=== PATIENT | male | born 1980 | race African-American/Black ===

== ENCOUNTER 2017-06-26 22:26 | Emergency (ER) | payer MEDICAID, OTHER ==
[2017-06-26 22:34] VITALS: BP 123/86; TEMP 99.7
[2017-06-26] MEDS ORDERED: MAG HYDROX/AL HYDROX/SIMETH 30 ML UDCUP PO ONE (23:57)
[2017-06-26] MEDS ORDERED: FAMOTIDINE 20 MG TAB PO ONE (23:57)
[2017-06-26] MEDS ORDERED: LIDOCAINE 2% VISCOUS 15 ML UDCUP PO ONE (23:57)
--- NOTE | 2017-06-26 23:58 | EDPHY ---
H & P Stated Complaint: ESOPHAGUS PAIN, HICCUPS Time Seen by Provider: 06/26/17 23:40 HPI/ROS: Chief Complaint: Reflux, hiccups HPI: 36-year-old homeless male with a history of GERD presenting with symptoms of GERD today and associated hiccups on and off all day. No nausea or vomiting. Little bit of epigastric pain. No fevers or chills. Is similar to prior episodes. He is not taking any medication for this. No vomiting. No melena or blood in stool. No chest pain or shortness of breath. He does drink occasional alcohol, denies smoking or drug use. ROS: 10 point Review of Systems is negative except as noted in the HPI. PMH: GERD Social History: No smoking, occasional alcohol, no recreational drug use Family History: non-contributory Physical Exam: Gen: Awake, Alert, No Distress HEENT: Nose: no rhinorrhea Eyes: PERRLA, EOMI Mouth: Moist mucosa Neck: Supple, no JVD Chest: nontender, lungs clear to auscultation Heart: S1, S2 normal, no murmur Abd: Soft, mild epigastric tenderness, no guarding Back: no CVA tenderness, no midline tenderness Ext: no edema, non-tender Skin: no rash Neuro: CN II-XII intact, Sensation grossly intact, Strength 5/5 in bilateral upper and lower extremities - Personal History Current Tetanus/Diphtheria Vaccine: No - Medical/Surgical History Hx Asthma: No Hx Chronic Respiratory Disease: No Hx Diabetes: No Hx Cardiac Disease: No Hx Renal Disease: No Hx Cirrhosis: No Hx Alcoholism: No Hx HIV/AIDS: No Hx Splenectomy or Spleen Trauma: No Other PMH: "WEAK HEART FROM DRUG USE" - Social History Smoking Status: Never smoked Constitutional: Initial Vital Signs Temperature (C) 37.6 C 06/26/17 22:31 Heart Rate 115 H 06/26/17 22:31 Respiratory Rate 20 06/26/17 22:31 Blood Pressure 123/86 H 06/26/17 22:31 O2 Sat (%) 93 06/26/17 22:31 O2 Delivery Mode Room Air Allergies/Adverse Reactions: PSYCHOTROPIC MEDICATIONS Allergy (Uncoded 06/26/17 22:31) Home Medications: Medication Instructions Recorded NK [No Known Home Meds] 06/26/17 Medical Decision Making ED Course/Re-evaluation: Patient is improved after GI cocktail and Pepcid. Will discharge with follow- up with [facility]. He can take [id number] antacids as needed. - Data Points Medications Given: Discontinued Medications Acetaminophen (Tylenol) 1,000 mg PO EDNOW ONE Stop: 06/27/17 00:18 Last Admin: 06/27/17 00:26 Dose: 1,000 mg Al Hydroxide/Mg Hydroxide (Maalox Susp) 30 ml PO ONCE ONE Stop: 06/26/17 23:58 Last Admin: 06/27/17 00:09 Dose: 30 ml Famotidine (Pepcid) 20 mg PO EDNOW ONE Stop: 06/26/17 23:58 Last Admin: 06/27/17 00:09 Dose: 20 mg Lidocaine (Lidocaine 2% Viscous) 15 ml PO ONCE ONE Stop: 06/26/17 23:58 Last Admin: 06/27/17 00:09 Dose: 15 ml Departure - Departure Disposition: Home, Routine, Self-Care Clinical Impression: GERD (gastroesophageal reflux disease) Condition: Good Instructions: Gastroesophageal Reflux Disease (ED) Additional Instructions: You may take [id number] antacids such as Pepcid as needed for your reflux. Follow up at [facility] in 3-4 days for further evaluation. Referrals: [facility],. [Clinic] - As per Instructions
[2017-06-27] MEDS ORDERED: ACETAMINOPHEN 500 MG TAB PO ONE (00:17)
[2017-06-27 01:27] VITALS: PULSE 78; RESP 16; O2SAT 96
== END 2017-06-27 01:26 | disposition home or self-care (01) ==
DX: K21.9 Gastro-esophageal reflux disease without esophagitis (principal)

== ENCOUNTER 2017-06-27 19:46 | Emergency (ER) | payer MEDICAID ==
[2017-06-27 19:57] VITALS: BP 112/86; PULSE 92; RESP 16; TEMP 99.1; O2SAT 93
[2017-06-27] MEDS ORDERED: LIDOCAINE 2% VISCOUS 15 ML UDCUP PO ONE (20:16)
[2017-06-27] MEDS ORDERED: MAG HYDROX/AL HYDROX/SIMETH 30 ML UDCUP PO ONE (20:16)
[2017-06-27] MEDS ORDERED: HYOSCYAMINE SULFATE 0.125 MG TAB PO ONE (20:16)
[2017-06-27] MEDS ORDERED: FAMOTIDINE 20 MG TAB PO ONE (20:19)
--- NOTE | 2017-06-27 20:24 | EDPHY ---
H & P Time Seen by Provider: 06/27/17 20:07 HPI/ROS: CHIEF COMPLAINT: "I just need GI cocktail and place for the night" HISTORY OF PRESENT ILLNESS: 36-year-old homeless male history of esophageal reflux seen in the ER yesterday for complaints of esophageal reflux return to the ER requesting another dose of GI cocktail. Also requesting respite for the evening noting that he was [facility] to [facility] into the [facility] and there is no warming fdc due to current weather conditions. PHYSICAL EXAM (Prior to examination, patient consented to physical exam, hands were washed and my usual and customary physical exam procedures followed) 1) GENERAL: Well-developed, well-nourished, alert and oriented. Appears to be in no acute distress. 2) HEAD: Normocephalic 3) HEENT: sclera anicteric . Airway is patent. Patient will only allow me to examine is oropharynx from a far. 4) LUNGS: Breathing comfortably. He will not allow me to auscultate his lungs 5) neck: Patient will not allow me to palpate his neck or palpate his face Smoking Status: Never smoked Constitutional: Initial Vital Signs Temperature (C) 37.3 C 06/27/17 19:55 Heart Rate 92 06/27/17 19:55 Respiratory Rate 16 06/27/17 19:55 Blood Pressure 112/86 H 06/27/17 19:55 O2 Sat (%) 93 06/27/17 19:55 O2 Delivery Mode Room Air Allergies/Adverse Reactions: PSYCHOTROPIC MEDICATIONS Allergy (Uncoded 06/26/17 22:31) Home Medications: Medication Instructions Recorded NK [No Known Home Meds] 06/26/17 MDM/Departure - MDM ED Course/Re-evaluation: Patient will not allow me to examine him adequately. He requests a GI cocktail and a dose of Pepcid which has been given to him. He requests overnight stay in the ER noting that he is unable to get into a fdc. I have declined this request. He has been informed that I am unable to adequately evaluate him if he is unwilling to let me examine him. [facility]. Care of patient under supervision of secondary supervising physician Dr Jenkins . - Depart Disposition: Home, Routine, Self-Care Clinical Impression: GERD (gastroesophageal reflux disease) Qualifiers: Esophagitis presence: with esophagitis Qualified Code(s): K21.0 - Gastro- esophageal reflux disease with esophagitis Condition: Good Instructions: Gastroesophageal Reflux Disease (ED) Additional Instructions: If you develop new or worsening symptoms return to the ER. Referrals: [facility],. [Clinic] - 1-2 days without fail
== END 2017-06-27 20:34 | disposition home or self-care (01) ==
DX: K21.0 Gastro-esophageal reflux disease with esophagitis (principal)

== ENCOUNTER 2017-12-31 22:33 | Emergency (ER) | payer MEDICAID ==
--- NOTE | 2017-12-31 23:05 | EDPHY ---
H & P Stated Complaint: cough fatigue Time Seen by Provider: 12/31/17 23:05 HPI/ROS: HPI CHIEF COMPLAINT: Cough and fatigue HISTORY OF PRESENT ILLNESS: 37-year-old male, denies any significant past medical history presents emergency room with cough, and fatigue. Patient is somewhat of a poor historian. He presents emergency room stating for the past 24 hr he has had worsening cough. Semi productive with yellow sputum. And fatigue. Denies any fever. Denies chest pain or shortness of breath, does complain that he is tired. Otherwise no other complaints. Past Medical History: Denies medical history Past Surgical History: Denies surgical history Social History: Denies drugs alcohol or tobacco. Family History: Noncontributory ROS REVIEW OF SYSTEMS: Somewhat of a poor historian. Hesitant to answer most of my questions. Exam Constitutional nontoxic appearing, no acute distress, triage nursing summary reviewed, vital signs reviewed, awake/alert. Vital signs are stable afebrile. Eyes normal conjunctivae and sclera, EOMI, PERRLA. HENT normal inspection, atraumatic, moist mucus membranes, no epistaxis, neck supple/ no meningismus, no raccoon eyes. Respiratory cough on exam, clear to auscultation bilaterally, normal breath sounds, no respiratory distress, no wheezing. Cardiovascular rate normal, regular rhythm, no murmur, no edema, distal pulses normal. Gastrointestinal soft, non-tender, no rebound, no guarding, normal bowel sounds, no distension, no pulsatile mass. Genitourinary no CVA tenderness. Musculoskeletal no midline vertebral tenderness, full range of motion, no calf swelling, no tenderness of extremities, no meningismus, good pulses, neurovascularly intact. Skin pink, warm, & dry, no rash, skin atraumatic. Neurologic awake, alert and oriented x 3, AAOx3, moves all 4 extremities equally, motor intact, sensory intact, CN II-XII intact, normal cerebellar, normal vision, normal speech. Psychiatric normal mood/affect. Heme/Lymph/Immune no lymphadenopathy. Differential Diagnosis: Includes but is not limited to in a particular order viral pneumonia, bacterial pneumonia, bronchitis, reactive airway disease, dehydration, electrolyte disturbance, viral syndrome Medical Decision Making: Plan for this patient two view chest x-ray to rule pneumonia, IV establishment IV fluid bolus, basic blood work. Re-evaluate Re-evaluation: Here in emergency room I tried to express that the patient should receive blood work, IV fluid bolus given how he is feeling however he has declined IV establishment, decline blood draw, declined IV fluids. He only wants a chest x- ray. Patient understands by refusing IV establishment, blood draw, that this can limit his workup. Chest x-ray two view reviewed. No evidence of focal pneumonia. 1204: I did go re-evaluate he is resting comfortably no acute distress. Albuterol inhaler prescribed for cough. Chest x-ray shows no pneumonia. Vital signs are stable. No hypoxia. No fever. Return precautions discussed with the patient. Patient understands return emergency room if he has worsening symptoms questions or concerns. Source: Patient - Personal History Current Tetanus/Diphtheria Vaccine: Yes Current Tetanus Diphtheria and Acellular Pertussis (TDAP): Yes - Medical/Surgical History Hx Asthma: No Hx Chronic Respiratory Disease: No Hx Diabetes: No Hx Cardiac Disease: No Hx Renal Disease: No Hx Cirrhosis: No Hx Alcoholism: No Hx HIV/AIDS: No Hx Splenectomy or Spleen Trauma: No Other PMH: "WEAK HEART FROM DRUG USE", L HAND SX. cocaine - Social History Smoking Status: Current some day smoker Constitutional: Initial Vital Signs Temperature (C) 37.1 C 12/31/17 22:36 Heart Rate 79 12/31/17 22:36 Respiratory Rate 18 12/31/17 22:36 Blood Pressure 125/75 H 12/31/17 22:36 O2 Sat (%) 92 12/31/17 22:36 O2 Delivery Mode Room Air Allergies/Adverse Reactions: PSYCHOTROPIC MEDICATIONS Allergy (Uncoded 06/26/17 22:31) Home Medications: Medication Instructions Recorded Albuterol [Proventil Inhaler HFA 1 - 2 puffs IH Q4H #1 mdi 12/31/17 (*)] Medical Decision Making - Diagnostics Imaging Results: Imaging Impressions Chest X-Ray 12/31/17 23:15 Impression: No focal pneumonia. - Data Points Medications Given: Discontinued Medications Sodium Chloride (Ns) 1,000 mls @ 0 mls/hr IV ONCE ONE; Wide Open PRN Reason: Protocol Stop: 12/31/17 23:16 Last Admin: 12/31/17 23:38 Dose: Not Given Departure - Departure Disposition: Home, Routine, Self-Care Clinical Impression: Cough Instructions: Cold Symptoms (ED), Acute Cough (ED) Additional Instructions: 1. Stay well-hydrated drink lots of fluids. 2. Return emergency room if you have worsening symptoms questions or concerns. 3. Albuterol inhaler for cough. Referrals: NONE *PRIMARY CARE P,. [Primary Care Provider] - As per Instructions [facility],. [Clinic] - As per Instructions Prescriptions: Albuterol [Proventil Inhaler HFA (*)] 1 - 2 puffs IH Q4H #1 mdi
[2017-12-31] MEDS ORDERED: NS 1,000 ML IV ONE (23:15)
[2018-01-01 00:13] VITALS: BP 122/74
== END 2018-01-01 00:13 | disposition home or self-care (01) ==
DX: R05 Cough (principal); R53.83 Other fatigue

== ENCOUNTER 2018-01-02 14:45 | Emergency (ER) | payer MEDICAID ==
[2018-01-02] MEDS ORDERED: ACETAMINOPHEN 500 MG TAB PO ONE (15:02)
[2018-01-02] MEDS ORDERED: IBUPROFEN 600 MG TAB PO ONE (15:03)
[2018-01-02] MEDS ORDERED: ACETAMINOPHEN 500 MG TAB ONE (15:04)
--- NOTE | 2018-01-02 16:22 | EDPHY ---
H & P Stated Complaint: headache Time Seen by Provider: 01/02/18 16:21 - Personal History Current Tetanus Diphtheria and Acellular Pertussis (TDAP): Unsure - Medical/Surgical History Hx Asthma: No Hx Chronic Respiratory Disease: No Hx Diabetes: No Hx Cardiac Disease: No Hx Renal Disease: No Hx Cirrhosis: No Hx Alcoholism: No Hx HIV/AIDS: No Hx Splenectomy or Spleen Trauma: No Other PMH: "WEAK HEART FROM DRUG USE", L HAND SX. cocaine - Social History Smoking Status: Current some day smoker Constitutional: Initial Vital Signs Temperature (C) 39.4 C H 01/02/18 15:01 Heart Rate 103 H 01/02/18 15:01 Respiratory Rate 18 01/02/18 15:01 Blood Pressure 119/86 H 01/02/18 15:01 O2 Sat (%) 97 01/02/18 15:01 O2 Delivery Mode Room Air Allergies/Adverse Reactions: haloperidol [From Haldol] Allergy (Verified 01/02/18 15:01) ketamine Allergy (Verified 01/02/18 15:01) olanzapine [From Zyprexa] Allergy (Verified 01/02/18 15:01) PSYCHOTROPIC MEDICATIONS Allergy (Uncoded 06/26/17 22:31) Home Medications: Medication Instructions Recorded Albuterol [Proventil Inhaler HFA 1 - 2 puffs IH Q4H #1 mdi 12/31/17 (*)] Medical Decision Making ED Course/Re-evaluation: CHIEF COMPLAINT: Fever, headache HISTORY OF PRESENT ILLNESS: This patient is a homeless 37 year old male complaining of fever and headache. 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 He has felt ill since then and had a cough which has now resolved. The patient has taken Tylenol and ibuprofen for relief. The patient states he gets ill when he goes to the [facility] and is wondering if there is anywhere else he can stay tonight. He denies chest pain, shortness of breath, vomiting, diarrhea, urinary complaints or other associated symptoms. REVIEW OF SYSTEMS: A comprehensive 10 system review of systems is otherwise negative aside from elements mentioned in the history of present illness and medical decision making. PHYSICAL EXAM: HR, BP, O2 Sat, RR. Temp noted General Appearance: Alert, well hydrated, appropriate, and non-toxic appearing. Head: Atraumatic without scalp tenderness or obvious injury Eyes: Pupils equal, round, reactive to light and accommodation, EOMI, no trauma , no injection. Ears: Clear bilaterally, no perforation, normal landmarks Nose: Atraumatic, no rhinorrhea, clear. Throat: There is no erythema or exudates, no lesions, normal tonsils, mucus membranes moist. Neck: Supple, nontender, no lymphadenopathy. Respiratory: Diffuse coarse rhonchi. Cardiovascular: Regular rate and rhythm, no murmurs, rubs, or gallops. Bilateral carotid, radial, dorsalis pedis, and posterior tibial pulses intact. Good capillary refill all extremities. Gastrointestinal: Abdomen is soft, nontender, non-distended, no masses, no rebound, no guarding, no peritoneal signs. Musculoskeletal: Normal active ROM of all extremities, atraumatic. Neurological: Alert, appropriate, and interactive. Nonfocal neuro exam. Skin: No rashes, good turgor, no nodules on palpation. Past medical history: History of drug abuse Past surgical history: Hand surgery Family history: Noncontributory. Social history: Transient. Currently staying in [facility]. Single. DIFFERENTIAL DIAGNOSIS: The differential diagnosis for the patient's fever included but was not limited to pneumonia, urinary tract infection, viral syndrome, meningitis, and sepsis. MEDICAL DECISION MAKING: This 37 y/o homeless male presents with fever and headache. Additionally, he is concerned regarding a place to stay tonight. He has already taken Tylenol and ibuprofen tonight. Case management to consult. Case management has spoken with this patient and with the [facility]. Patient is unable to stay at the [facility] tonight as he has not gotten a TB test yet. He understands this requirement. Case management provided resources for a walk-in TB test at the [facility] tomorrow. The patient will follow up with them. Symptoms more consistent with a viral syndrome than bacterial infection. I will not prescribe antibiotics at this time. He will follow up with the [facility] as above. Plan to discharge home in good condition. Follow up and return precautions discussed. He is comfortable with this plan. - Data Points Medications Given: Discontinued Medications Acetaminophen (Tylenol) 1,000 mg PO EDNOW ONE Stop: 01/02/18 15:03 Last Admin: 01/02/18 15:06 Dose: 1,000 mg Ibuprofen (Motrin) 600 mg PO EDNOW ONE Stop: 01/02/18 15:04 Last Admin: 01/02/18 15:06 Dose: 600 mg Departure - Departure Disposition: Home, Routine, Self-Care Clinical Impression: Viral syndrome Condition: Good Instructions: [facility], Viral Syndrome (ED) Additional Instructions: 1. Follow up with your primary care provider. We have provided a referral to a local clinic. 2. Take Tylenol and ibuprofen for fever reduction as directed below. You can alternate these every three hours. Adult Pain & Fever Control: We recommend Acetaminophen (Tylenol) and Ibuprofen (Motrin,Advil) for pain and fever control. When fever is high or pain severe, both drugs can be used at the same time, but at different intervals. Please note the time differences. Your dose is: Acetaminophen 650mg every 4 to 6 hours Ibuprofen 600mg every 6-8 hours with food Note: do not take Acetaminophen with Hydrocodone (Vicodin, Lortab) or Oxycodone (Percocet). These medications also contain Acetaminophen. No more than 3000mg of Acetaminophen should be taken in 24 hours (for an adult). Walk-in hours at [facility]: between 2-330pm. You MUST go to get a TB test and temporary card in order to stay at the [facility]. Referrals: [facility],. [Clinic] - As per Instructions Report Scribed for: Donis Reeves Report Scribed by: Jenny Johnson Date of Report: 01/02/18 Time of Report: 18:43
[2018-01-02 17:13] VITALS: BP 130/79
--- NOTE | 2018-01-02 17:40 | ASMTCMCOM ---
CM Note CM Note Notes: Please see ER report for details regarding recent ER visits (12/31/17 and 01/02/18). Patient informs me that he has been to "coordinated entry" and was directed to the [facility]. He prefers not to stay at the assisted because he finds it "smelly and difficult to breathe there". I asked patient about other resources he has looked into, including establishing a PCP at [facility] and/or [facility]. Patient states that he travels between [place] and [place] and has been to [facility] but "does not like it there". "I do not have any mental health issues. I just have behavioral issues from being homeless". I contacted the [facility] and spoke with Jing. She states that patient is able to stay at the assisted once he has a TB test. He has reached his "limit" in the number of days that have past since he has stayed at the assisted and has not followed up with a TB test. Jing confirms the walk in hours at [facility] tomorrow 2:00-3:40 PM, and states that patient can get his TB test during these hours and present at the assisted tomorrow evening with his temporary card. He is NOT able to stay at the assisted tonight I have discussed this with the patient and provided him a list of community resources, including contact information for [facility] 06/11 crisis center. The walk in hours for tomorrow and the address for [facility] was provided to him as well. Patient verbalizes understanding that he must follow up with this in order to resume staying at the assisted. Date Signed: 01/02/2018 05:39 PM Electronically Signed By:Nita Amos RN
== END 2018-01-02 17:13 | disposition home or self-care (01) ==
LOC: EDUNIT#
DX: B34.9 Viral infection, unspecified (principal); F17.200 Nicotine dependence, unspecified, uncomplicated

== ENCOUNTER 2018-01-02 23:11 | Emergency (ER) | payer MEDICAID ==
[2018-01-02 23:17] VITALS: BP 100/61
[2018-01-02] MEDS ORDERED: LACTATED RINGERS IV ONE (23:18)
[2018-01-02] MEDS ORDERED: ACETAMINOPHEN 500 MG TAB PO ONE (23:19)
--- NOTE | 2018-01-02 23:27 | EDPHY ---
H & P Stated Complaint: fever and VALDOVINOS doesn't have tylenol Time Seen by Provider: 01/02/18 23:20 HPI/ROS: HPI: This is a 37-year-old male who presents with Chief Complaint: fever and VALDOVINOS doesn't have tylenol Location:body Quality: Fever and headache Duration: Several days Signs and Symptoms: no fever, + nausea, no vomiting, no diarrhea, no urinary symptoms, no chest pain, no shortness of breath, no wheezing,+ cough, no sore throat, no neck stiffness, no joint pain, no swollen glands, no ear pain, no rash Timing: Daily Severity: Moderate Context: Patient is homeless, presents for the 3rd ER visit with complaints of fever and requesting Tylenol. He reports that he has had a fever for several days. He also has a headache "all over" and nonproductive cough. He is refusing all treatments except Tylenol. Patient is homeless. He denies any recent drug use. She further reports that he was in the hospital recently and does not want to be admitted again. He reports that he did not like receiving IV fluids when he was hospitalized and he refuses to have any more fluids" pumped into my body." Modifying Factors: None Comment: ROS: A comprehensive 10 system review of systems is otherwise negative aside from elements mentioned in the history of present illness. MEDICAL/SURGICAL/SOCIAL HISTORY: Medical/surgical history: "WEAK HEART FROM DRUG USE", L HAND SX, cocaine Social history: Tobacco user. Homeless. Current every day smoker. Family history noncontributory. CONSTITUTIONAL: Ill-appearing, middle-aged black male, awake and alert, no obvious distress HEENT: Atraumatic and normocephalic, PERRL, EOMI. Nares patent; no rhinorrhea; no nasal mucosal edema. Tympanic membranes clear. Oropharynx clear, no exudate and moist pink mucosa. Airway patent. No lymphadenopathy. No meningismus. Cardiovascular: Normal S1/S2, tachycardia, regular rhythm, without murmur rub or gallop. PULMONARY/CHEST: Symmetrical and nontender. Clear to auscultation bilaterally. Good air movement. No accessory muscle usage. ABDOMEN: Soft, nondistended, nontender, no rebound, no guarding, no peritoneal signs, no masses or organomegaly. No CVAT. EXTREMITIES: 2/2 pulses, strength 5/5, no deformities, no clubbing, no cyanosis or edema. NEUROLOGICAL: no focal neuro deficits. GCS 15. SKIN: Warm and dry, diaphoretic, no erythema. no rash. Good capillary refill. Source: Patient Exam Limitations: No limitations - Personal History Current Tetanus/Diphtheria Vaccine: No Current Tetanus Diphtheria and Acellular Pertussis (TDAP): No - Medical/Surgical History Hx Asthma: No Hx Chronic Respiratory Disease: No Hx Diabetes: No Hx Cardiac Disease: No Hx Renal Disease: No Hx Cirrhosis: No Hx Alcoholism: No Hx HIV/AIDS: No Hx Splenectomy or Spleen Trauma: No Other PMH: "WEAK HEART FROM DRUG USE", L HAND SX. cocaine - Social History Smoking Status: Current some day smoker Constitutional: Initial Vital Signs Temperature (C) 39.4 C H 01/02/18 23:13 Heart Rate 114 H 01/02/18 23:13 Respiratory Rate 16 01/02/18 23:13 Blood Pressure 100/61 01/02/18 23:13 O2 Sat (%) 97 01/02/18 23:13 O2 Delivery Mode Room Air Allergies/Adverse Reactions: haloperidol [From Haldol] Allergy (Verified 01/02/18 23:14) ketamine Allergy (Verified 01/02/18 15:01) olanzapine [From Zyprexa] Allergy (Verified 01/02/18 23:14) PSYCHOTROPIC MEDICATIONS Allergy (Uncoded 01/02/18 23:14) Home Medications: Medication Instructions Recorded Albuterol [Proventil Inhaler HFA 1 - 2 puffs IH Q4H #1 mdi 12/31/17 (*)] Medical Decision Making ED Course/Re-evaluation: Vital signs reviewed upon arrival. Sirs criteria met. Blood culture, lactic acid, laboratory studies, chest x-ray, IV fluids 30 mL/kg , oral medications ordered Patient will only accept Tylenol; 1000 mg given. At bedside for 15 minutes, trying to convince patient to allow laboratory studies, chest x-ray and IV placement including IV fluids. Discussed risk, benefits, adverse effects. Patient is alert and oriented x4 and adamantly declines any further intervention other than Tylenol. Patient understands that he could develop sepsis, septic shock and even an untimely . This patient was seen under the supervision of my secondary supervising physician. I evaluated care for this patient independently. Discussed this patient with Dr. Stout who did see the patient. Differential Diagnosis: Adult fever including but not limited to viral syndromes including influenza, urinary tract infection, pneumonia and sepsis. Departure - Departure Disposition: Against Medical Advice Clinical Impression: SIRS (systemic inflammatory response syndrome) Condition: Fair Instructions: Acetaminophen (By mouth), Fever in Adults (ED) Additional Instructions: Take Tylenol 650 mg every 4 hours and/or Ibuprofen 600 mg every 8 hours with food as needed for pain/fever. Consume a minimum of 8-10 glasses of water or electrolyte fluid replacement drinks that include Gatorade, Powerade, Pedialyte. Return at once for any worsening symptoms or concerns. By leaving against medical advise you have verbalized complete understanding and acceptance of the risks associated with doing so, including, but not limited to, , chronic & permanent disability and impairment, and other circumstances and consequences too numerous to mention herein Referrals: [facility],. [Clinic] - As per Instructions
== END 2018-01-02 23:33 | disposition left against medical advice (07) ==
LOC: EDUNIT#
DX: R65.10 Systemic inflammatory response syndrome (SIRS) of non-infectious origin without acute organ dysfunction (principal); F17.200 Nicotine dependence, unspecified, uncomplicated; Z59.0 Homelessness

== ENCOUNTER 2018-01-14 15:29 | Emergency (ER) | payer MEDICAID ==
[~2018-01-14 15:29] MED LIST: METOCLOPRAMIDE 10 MG TAB PO SCH; PANTOPRAZOLE SODIUM 40 MG TAB PO SCH
[2018-01-14] MEDS ORDERED: ACETAMINOPHEN 325 MG TAB PO ONE (15:45)
[2018-01-14] MEDS ORDERED: PANTOPRAZOLE SODIUM 40 MG TAB PO ONE (15:45)
--- NOTE | 2018-01-14 15:51 | EDPHY ---
H & P Time Seen by Provider: 01/14/18 15:49 HPI/ROS: CHIEF COMPLAINT: Hiccups and headache HISTORY OF PRESENT ILLNESS: 37-year-old male presents with hiccups and headache. Onset of hiccups 2 days ago. The hiccups have been persistent and unrelieved with 1 dose of Prilosec. He has been seen in 2 emergency departments in the past 24 hr and was discharged to the [facility]. He was at the [facility] for approximately 10 min, when he complained of hiccups and a headache. He was sent to this emergency department for further evaluation. He has a mild headache and requests Tylenol. He has a history of recurrent hiccups, most recently 2 weeks ago. The hiccups return 2 days ago and have been fairly persistent. No recent illness. REVIEW OF SYSTEMS: complete 10 point ROS reviewed and is negative except for the noted elements in the HPI - Medical/Surgical History Hx Asthma: No Hx Chronic Respiratory Disease: No Hx Diabetes: No Hx Cardiac Disease: No Hx Renal Disease: No Hx Cirrhosis: No Hx Alcoholism: No Hx HIV/AIDS: No Hx Splenectomy or Spleen Trauma: No Other PMH: "WEAK HEART FROM DRUG USE", L HAND SX. cocaine - Social History Smoking Status: Current some day smoker Additional Social History: Homeless - Physical Exam Exam: General Appearance: Alert, confrontational, refuses to answer many questions Eyes: Pupils equal and round, no conjunctival pallor or injection ENT, Mouth: Mucous membranes moist Neck: Normal inspection Respiratory: Lungs are clear to auscultation Cardiovascular: Regular rate and rhythm Gastrointestinal: Abdomen is soft and nontender Neurological: A&O, nonfocal exam Skin: Warm and dry, no rash Extremities: Normal inspection Psychiatric: Anxious Constitutional: Initial Vital Signs Temperature (C) 37 C 01/14/18 15:49 Heart Rate 88 01/14/18 15:49 Respiratory Rate 18 01/14/18 15:49 Blood Pressure 125/85 H 01/14/18 15:49 O2 Sat (%) 98 01/14/18 15:49 O2 Delivery Mode Room Air Allergies/Adverse Reactions: haloperidol [From Haldol] Allergy (Verified 01/02/18 23:14) ketamine Allergy (Verified 01/02/18 15:01) olanzapine [From Zyprexa] Allergy (Verified 01/02/18 23:14) PSYCHOTROPIC MEDICATIONS Allergy (Uncoded 01/02/18 23:14) Home Medications: Medication Instructions Recorded Albuterol [Proventil Inhaler HFA 1 - 2 puffs IH Q4H #1 mdi 12/31/17 (*)] Metoclopramide [Reglan 10 mg tab 10 mg PO Q6 PRN #15 tab 01/14/18 (*)] Pantoprazole Sodium [Protonix] 40 mg PO DAILY #30 tablet. 01/14/18 Medical Decision Making ED Course/Re-evaluation: This pt presents with VALDOVINOS, hiccups and significant anxiety. Old medical record reviewed, h/o multiple prior ED visits. Multiple allergies to psych meds, refuses Ativan, though it seems he will benefit from Ativan. Protonix and Reglan orally given for hiccups. Tylenol given for VALDOVINOS. I doubt intracranial pathology causing sx. Imaging not indicated. f/u encouraged. - Data Points Medications Given: Discontinued Medications Acetaminophen (Tylenol) 650 mg PO EDNOW ONE Stop: 01/14/18 15:46 Last Admin: 01/14/18 15:55 Dose: 650 mg Metoclopramide HCl (Reglan) 10 mg PO EDNOW ONE Stop: 01/14/18 16:00 Last Admin: 01/14/18 16:06 Dose: 10 mg Pantoprazole Sodium (Protonix) 40 mg PO EDNOW ONE Stop: 01/14/18 15:46 Last Admin: 01/14/18 15:55 Dose: 40 mg Departure - Departure Disposition: Home, Routine, Self-Care Clinical Impression: Hiccups Condition: Good Instructions: Hiccups (ED) Additional Instructions: The [facility] has walk-in appointments for the homeless at the following days/locations. No appointment is needed. Sunday 8-10 am @ [facility] 11 AM-1 PM @ [facility] Sunday 8-10:30 AM @ [facility] Sunday 8-10 AM @ [facility] 2-4 PM @ [facility] Sunday 8-10 AM @ [facility] Referrals: [facility],. [Clinic] - As per Instructions Prescriptions: Metoclopramide [Reglan 10 mg tab (*)] 10 mg PO Q6 PRN #15 tab PRN Reason: Hiccups Pantoprazole Sodium [Protonix] 40 mg PO DAILY #30 tablet.
[2018-01-14] MEDS ORDERED: METOCLOPRAMIDE 10 MG TAB PO ONE (15:59)
[2018-01-14 16:47] VITALS: BP 120/80
--- NOTE | 2018-01-14 17:54 | ASMTCMCOM ---
CM Note CM Note Notes: Pt presented to the ED via EMS from the [facility] to [facility] for c/o of hiccups and a headache. Pt is homeless and had been initially set up a respite bed at [facility] through [facility]. Pt is not allowed to return to [facility] due to behavioral issues when he arrived there. Pt completed Coordinated Entry in June 2017 and was referred to the [facility] for [facility]. Pt has not been allowed to stay at the nursing home due to never following up w/[facility] to get his TB card (see CM Report 01/02/18). This CM spoke w/staff including Ramiro, at [facility], and it was confirmed that due to the new season, pt will be allowed one night ximena stay tonight but will need to follow-up w/PC tomorrow to get another TB test and eventually a TB card. Ramiro states it is not clear yet whether pt will only be allowed one night ximena stay tonight or if he will be allowed another 14 days ximena period for the TB card. Pt provided a Medicaid cab to [facility]. Pt provided Rxns through [facility] (total cost <$10) because his Medicaid rxn benefits are under a "Managed Care" plan and he can only get his meds filled through Medicaid at [facility]. Pt states he also sometimes stays in [place] shelters. Pt [facility] and contact info for Valencia Lee RN for [facility]. Pt provided [facility] walk-in hours and location, etc. CM available for further assistance if needed. Date Signed: 01/14/2018 05:53 PM Electronically Signed By:Yamileth Hodges RN
--- NOTE | 2018-01-15 11:04 | ASMTCMCOM ---
CM Note CM Note Notes: Followed up w/[facility] and spoke w/Dayami. Pt is not registered in their system. Requested that he be registered and a chart created; also requested that Linda, Homeless Outreach RN, can keep an eye out for the pt at the [facility] and assist w/getting PPD placement (& eventually TB card) and other outpatient follow-up as needed. Pt is aware of drop-in hours and that PC offers PPD placements at [facility] on Mon., Wed., and Fri but pt appears to have either cognitive and/or psychiatric issues that might hinder his ability to remember instructions, recommendations, etc. CM available for further assistance if needed. Date Signed: 01/15/2018 11:03 AM Electronically Signed By:Yamileth Hodges RN
== END 2018-01-14 16:47 | disposition home or self-care (01) ==
LOC: EDUNIT#
DX: R06.6 Hiccough (principal); R51 Headache; F17.210 Nicotine dependence, cigarettes, uncomplicated

== ENCOUNTER 2018-01-17 10:02 | Inpatient (IN) | payer MEDICAID, OTHER ==
[2018-01-17 12:17] LABS: PLATELET COUNT 335 10^3/uL (150-400)
--- NOTE | 2018-01-17 12:37 | EDPHY ---
General - History Smoking Status: Current some day smoker Time Seen by Provider: 01/17/18 12:13 Narrative: CHIEF COMPLAINT: M1 HISTORY OF PRESENT ILLNESS: Patient presents by EMS with reports of hold due to risk of self-harm. Patient was reportedly found sitting in the middle of traffic here in [place]. Police department document that they assisted him to the side of the road but he continued to be located in the middle of the road. They were concerned for his well being, thus they placed him on a hold he was transported to our facility. He is pacing in the room. He states that "I'm on too many medications and I made some bad decisions." He denies any chest pain or shortness of breath. No abdominal pain. He does have intermittent headache. He denies any ingestion of substances or alcohol today. PSYCHIATRIC DIAGNOSES: Denies any diagnoses PRIOR PSYCHIATRIC EVALUATIONS: Denies evaluations M1/DETAINER: [employer] [employer] just prior to arrival REVIEW OF SYSTEMS: Ten systems reviewed and are negative unless otherwise noted in the HPI EXAMINATION General Appearance: Alert, no distress. Pacing in the room. Conversing in full sentences Head: normocephalic, atraumatic Eyes: Pupils equal and round, no conjunctival pallor or injection. Will not performed EOM testing ENT, Mouth: Mucous membranes moist. Airway is patent Neck: Normal inspection. Midline trachea. Will not allow me to palpate Respiratory: Will not allow me to auscultate Cardiovascular: Will not allow me to auscultate Gastrointestinal: Abdomen is nondistended. He will not allow me to auscultated palpate Neurological: GCS 15. A&O, nonfocal, normal gait. No altered mentation. Skin: Warm and dry, no rash. Multiple tattoos. Extremities: Ambulatory. Will not allow examination Psychiatric: Agitated mood and flat affect. Denies homicidal ideation. Denies suicidal ideation. DIFFERENTIAL DIAGNOSES: Including but not limited to psychosis, bipolar disorder, schizoaffective, schizophrenia, aggression disorder, antisocial personality MDM: 12:15 p.m. M1 hold due to concern for self-harm as he was found sitting in the middle of road several times by police. They placed him on a hold and he thus far has been uncooperative. He has been pacing in his room. He has been agitated but not physically combative. They were finally able to obtain laboratory studies from him which are pending. 2:00 p.m. Patient has been medically cleared and evaluated with pending recommendation. 2:30 p.m. Patient has been accepted to [address] [place] [address], accepting physician is Dr. Sinha. He is in stable condition. EMTALA has been completed by Dr. Roxi Buckner SUPERVISION: Patient was independently examined, but I discussed the case with my secondary supervising physician Dr. Buckner ([facility]) Discussion: The patient was evaluated and managed by the Physician Voice Data Communications Engineer. I discussed the patient's presentation and course with the midlevel provider with them and agree with the evaluation. My co-signature indicates that I have reviewed this chart and I agree with the findings and plan of care as documented. I am the secondary supervising physician. (Roxi Buckner) - Objective Vital Signs: Initial Vital Signs Temperature (C) 36.5 C 01/17/18 10:12 Heart Rate 74 01/17/18 10:12 Respiratory Rate 18 01/17/18 10:12 Blood Pressure 118/70 01/17/18 10:12 O2 Sat (%) 94 01/17/18 10:12 O2 Delivery Mode Room Air Allergies/Adverse Reactions: haloperidol [From Haldol] Allergy (Verified 01/02/18 23:14) ketamine Allergy (Verified 01/02/18 15:01) olanzapine [From Zyprexa] Allergy (Verified 01/17/18 18:30) PSYCHOTROPIC MEDICATIONS Allergy (Uncoded 01/02/18 23:14) Home Medications: Medication Instructions Recorded Pantoprazole Sodium [Protonix] 40 mg PO DAILY #30 tablet. 01/14/18 Laboratory Results: Laboratory Results 01/17/18 11:15 01/17/18 11:15 01/17/18 00:04 Total Bilirubin 0.6 mg/dL mg/dL (0.1-1.4) Conjugated Bilirubin 0.2 mg/dL mg/dL (0.0-0.5) Unconjugated Bilirubin 0.4 mg/dL mg/dL (0.0-1.1) AST 17 IU/L IU/L (17-59) ALT 28 IU/L IU/L (21-72) Alkaline Phosphatase 74 IU/L IU/L (38-126) Total Protein 7.7 g/dL g/dL (6.3-8.2) Albumin 4.0 g/dL g/dL (3.5-5.0) Medications Given: Pantoprazole Sodium (Protonix) 40 mg PO DAILY LUCAS Stop: 07/17/18 08:59 Last Admin: 01/18/18 08:37 Dose: Not Given Discontinued Medications Lorazepam (Ativan) 2 mg PO EDNOW ONE Stop: 01/17/18 15:47 Last Admin: 01/17/18 16:04 Dose: Not Given Departure - Departure Disposition: [facility] IP Clinical Impression: Schizophrenia Condition: Good
--- NOTE | 2018-01-17 14:16 | ASMTTCLDSP ---
TLC Discharge Disposition Disposition: Answers: Admit Disposition Notes: Notes: Admit 3N. Discharge Concerns/Recommendations: Notes: In consultation with [facility] ED physician, DAJUAN Feldman and on-call psychiatrist, Chris Cohen MD, both concurred that pt appears to meet 27-65 criteria requiring psychiatric hospitalization as pt appears to be at risk of harm to self/gravely disabled due to a mental illness condition. Pt was given (but unable to sign) the 3N prohibited belongings list while in the ED. Was patient given the Answers: Yes Inpatient Behavioral Health Prohibited Belongings List while in the ED? For inpatient Chris Cohen MD admission, the following psychiatrist agreed to accept patient for admission to Behavioral Health ([facility]): Type of Hold: Answers: M1/72-hour Hold Hold initiated by: Answers: Police Date Signed: 01/17/2018 02:16 PM Electronically Signed By:Checo Paula
--- NOTE | 2018-01-17 14:16 | ASMTTLCEVL ---
TLC Evaluation - Basic Information Evaluation Start Date and 01/17/2018 01:00 PM Time Hospital Status Answers: M1 Hold 72-hr M1 Hold Start Date 01/17/2018 09:45 AM and Time Patient statement Notes: Im not doing too good. Its hard for me to talk right now. Narrative Notes: Pt is a 37 yo, homeless, unemployed, male with limited known psychiatric history, likely schizophrenia and ZOË, brought to [facility] ED by [employer] on M1 hold which noted: Respondent was sitting in the middle of the road crying. Subject was moved from the roadway three times and he would return to the middle of the road. Respondent was unable to complete a sentence and kept saying he did want to go. Attempted to obtain collateral from P who reported that pt is not an open client with [facility] and have no information on pt. Pt has Medicaid insurance. Lab results unremarkable and WNL. UDS results negative for all tested substances. Upon pt being med cleared, initiated interview. Pt was observed lying on the gurney, appeared clean and fairly well groomed, with blanket over himself up to his shoulders. I observed a well-healed scar on pts left forehead. No information provided or available on the history of the scar. Pt did not respond to a myriad of questions inviting him to say what he thought was going on for him. He would only stare at the wall to the left of the interviewer, rarely blinking, and again, nonverbal. Some medical record pages were on his person from [facility] dated 01/04/18 with list of medications including: Buspar 10 mg po TID for ZOË; Klonopin 0.5 mg po BID; Depakote 1000 mg po daily; Vistaril 25 mg po q6hrs prn for anxiety; Zyparexa 20 mg po BID daily for psychosis; and Perphenazine 4 mg po BID for schizophrenia. Diagnosis History Notes: Schizophrenia and ZOË. Prior suicide attempts Notes: No history provided by pt and outside collateral not available at this time. Prior hospitalizations Notes: No history provided by pt and outside collateral not available at this time. Treatment Responses Notes: No history provided by pt and outside collateral not available at this time. History of violence Notes: No history provided by pt and outside collateral not available at this time. Therapist: No history provided by pt and outside collateral not available at this time. Psychiatrist: No history provided by pt and outside collateral not available at this time. Medications (name, dosage, route, freq uency) Notes: Buspar 10 mg po TID for ZOË; Klonopin 0.5 mg po BID; Depakote 1000 mg po daily; Vistaril 25 mg po q6hrs prn for anxiety; Zyparexa 20 mg po BID daily for psychosis; and Perphenazine 4 mg po BID for schizophrenia Allergies/Reaction Notes: Unknown. No history provided by pt and outside collateral not available at this time. Sleep Notes: Unknown. No history provided by pt and outside collateral not available at this time. Appetite Notes: Unknown. No history provided by pt and outside collateral not available at this time. Medical/Surgical history Notes: No history provided by pt and outside collateral not available at this time. Lab results unremarkable and WNL. UDS results negative for all tested substances. Substance use history (frequency, intensity, his tory, duration) Notes: No history provided by pt and outside collateral not available at this time. Lab results unremarkable and WNL. UDS results negative for all tested substances. Family composition Notes: No history provided by pt and outside collateral not available at this time. Need for family Answers: No participation in patient's care Family psychiatric/substance abuse history Notes: No history provided by pt and outside collateral not available at this time. Developmental history Notes: No history provided by pt and outside collateral not available at this time. Abuse concerns Answers: None Marital status/children Notes: No history provided by pt and outside collateral not available at this time. Living situation Notes: No history provided by pt and outside collateral not available at this time. Presumed homeless. Sexual history/orientation Notes: No history provided by pt and outside collateral not available at this time. Peer support/family strengths Notes: No history provided by pt and outside collateral not available at this time. Presumed homeless. Education level/history Notes: No history provided by pt and outside collateral not available at this time. Presumed homeless. Work history Notes: No history provided by pt and outside collateral not available at this time. Presumed homeless. Presumed to be unemployed. Notes: None. Legal Notes: No history provided by pt and outside collateral not available at this time. Catholic/Spiritual Notes: No history provided by pt and outside collateral not available at this time. Leisure Notes: None reported. Collateral Notes: No history provided by pt and outside collateral not available at this time. Patient's strengths Answers: Athletic (Please select at least TWO strengths): Willingness TLC Evaluation - Mental Status Exam Appearance: Answers: Appropriate Clean Well Groomed Neat Eye Contact: Answers: Staring Mood: Answers: Depressed Sad Affect: Answers: Apprehensive Blunted Calm Congruent w/ Mood Constricted Fearful Flat Guarded Sad Subdued Behavior: Answers: Uncooperative Anxious Guarded Passive Resistive to Care Speech: Answers: Unclear Delayed Mute Thought Process: Answers: Disorganized Disoriented Alert Thought Blocking Insight: Answers: Poor Judgement: Answers: Poor Depression Answers: Crying Spells Signs/Symptoms: Difficulty Concentrating Flat Affect Psychomotor Retardation Sad Mood Withdrawn Anxiety Signs/Symptoms Answers: Generalized Anxiety Hallucinations: Answers: None Current Stage of Change Answers: Precontemplation Pt reported to have Answers: No suicidal/self-injuring ideation/behavior? Pt reported to be making Answers: Yes suicidal/self-injuring threats? Pt reported to have Answers: No aggression/assault ideation/behavior? Pt reported to be making Answers: No aggression/assault threats? Pt exhibits inability to Answers: Yes care for self/grave disability? Ideation/behavior is Answers: No chronic? Patient has a specific Answers: Yes plan? Pt has access to means to Answers: Yes execute the plan? Ideation involves Answers: Yes serious/lethal intent? [facility] Evaluation - Suicide/Homicide Risk Suicide Risk Factors: Answers: < 20 or > 40 Years of Age Flat Affect Inadequate Social Support Lack of Social Support Lack/Loss of Employment Psychotic Disorder Schizophrenia Unstable Living Situation Current Suicidal Answers: No Ideation? Current Suicidal Ideation Answers: Yes in the Past 48 Hours? Current Suicidal Ideation Answers: No in the Past Month? Current Suicidal Answers: No Ideation, Worst Ever? Suicide Internal Answers: None Protective Factors: Suicide External Answers: None Protective Factors: Ranking of patient's Answers: Moderate suicidal risk: Ranking of patient's Answers: Low homicidal risk: [facility] Evaluation - Wrap-up AXIS I Diagnosis (include DSM-V and ICD-10 codes), must also be entered in [employer], which is the source of truth. Notes: Schizophrenia 295.90 (F20.9) Generalized Anxiety Disorder 300.02 (F41.1) In consultation with [facility] ED physician, DAJUAN Feldman and on-call psychiatrist, Chris Cohen MD, both concurred that pt appears to meet 27-65 criteria requiring psychiatric hospitalization as pt appears to be at risk of harm to self/gravely disabled due to a mental illness condition. Pt was given (but unable to sign) the 3N prohibited belongings list while in the ED. Pt unable to complete BDI/BSS questionnaires due to near-catatonic mental state. Evaluation End Date and 01/17/2018 02:15 PM Time (HH:ROSALIND): Date Signed: 01/17/2018 02:15 PM Electronically Signed By:Checo Paula
--- NOTE | 2018-01-17 15:33 | GCON ---
DATE OF CONSULTATION: 01/17/2018 HISTORY OF PRESENT ILLNESS: The patient is a 37-year-old gentleman with a history of schizophrenia w juan josé was brought to the emergency department on an M1 hold by the [employer]. Apparently, he was s itting in the street in the middle of the road. They moved him, he florencia go back there. When I go to speak with the patient, he is tearful and declines much of the interview. He is somewha t fearful. He does deny chest pain, shortness of breath, fever, chills, nausea, vomiting, diarrhea. He has no significant medical problems. He denies any recent drug use. REVIEW OF SYSTEMS: Complete 10-point review of systems conducted, negative as noted in the HPI. PAST MEDICAL HISTORY: Schizophrenia. SOCIAL HISTORY: The patient will not answer questions about substances. Tox screen is negative. FAMILY HISTORY: Reviewed, unremarkable. PHYSICAL EXAMINATION: VITAL SIGNS: Presenting: Temp 36.5, blood pressure 118/70, pulse 74, breathi ng 18 times a minute, 94% on room air. GENERAL: No acute distress. Fearful. Sclerae anicteric. O ropharynx clear. Mucous membranes are moist. NECK: Supple without lymphadenopathy or JVD. LUNGS: Clear to auscultation bilaterally. HEART: S1, S2. Not tachycardic. ABDOMEN: Soft, nontender, no ndistended. LOWER EXTREMITIES: No edema. Calves are nontender. SKIN: Without rash. NEUROLOGIC: Nonfocal. LABORATORY/IMAGING: White count 5, hematocrit 44, platelets 335,000. Sodium 141, potassium 4.6, chl oride 104, bicarb 24, BUN 12, creatinine 1.0, glucose 97. Tox screen is negative for salicylates, op iates, acetaminophen, barbiturates, PCP, ethanol, amphetamine, benzodiazepine, lithium, cocaine, jomar bessie. There is no imaging. I discussed the case with Sen Arrieta. ASSESSMENT/PLAN: 37-year-old man with a history of schizophrenia, here with decompensation. 1. Health evaluation. The patient appears to be free of medical problems at this period of time. H e has normal labs, normal physical exam, and normal vitals. 2. Schizophrenia management per Psychiatry. 3. Fearfulness. Suspect this is a component of his psychiatric illness. Thank you for this consultation. Hospital Medicine will not follow. /[id number]/MODL
[2018-01-17] MEDS ORDERED: LORazepam 1 MG TAB PO ONE (15:46)
[2018-01-17 16:53] VITALS: BP 130/88
[2018-01-17] MEDS ORDERED: NICOTINE POLACRILEX 2 MG GUM B PRN (18:17)
[2018-01-17] MEDS ORDERED: MAGNESIUM HYDROXIDE 30 ML UDCUP PO PRN (18:17)
[2018-01-17] MEDS ORDERED: OLANZapine DISINTEGR 10 MG TAB PO PRN (18:17)
[2018-01-17] MEDS ORDERED: LORazepam 0.5 MG TAB PO PRN (18:17)
[2018-01-17] MEDS ORDERED: MAG HYDROX/AL HYDROX/SIMETH 30 ML UDCUP PO PRN (18:17)
[2018-01-17] MEDS ORDERED: ACETAMINOPHEN 325 MG TAB PO PRN (18:17)
--- NOTE | 2018-01-18 08:28 | ASMTBHMTP ---
Master Treatment Plan Date: 01/18/2018 Diagnosis on Admission: Schizophrenia 295.90 (F20.9) Expected length of stay: 3-5 Reason for admission: Notes: Pt is a 37 yo, homeless, unemployed, male with limited known psychiatric history, likely schizophrenia and ZOË, brought to [facility] ED by [employer] on M1 hold which noted: Respondent was sitting in the middle of the road crying. Subject was moved from the roadway three times and he would return to the middle of the road. Respondent was unable to complete a sentence and kept saying he did want to go. Attempted to obtain collateral from [facility] who reported that pt is not an open client with [facility] and have no information on pt. Pt has Medicaid insurance. Lab results unremarkable and WNL. UDS results negative for all tested substances. Upon pt being med cleared, initiated interview. Pt was observed lying on the gurney, appeared clean and fairly well groomed, with blanket over himself up to his shoulders. I observed a well-healed scar on pts left forehead. No information provided or available on the history of the scar. Pt did not respond to a myriad of questions inviting him to say what he thought was going on for him. He would only stare at the wall to the left of the interviewer, rarely blinking, and again, nonverbal. Patient's stated presenting problems: Notes: "I made bad choices. I decomposed. I wasn't able to function. I went to the care home and I wasn't able to shower and eat". Patient's goals for treatment: Notes: Ct. reported that he would like to discharge as being on the unit "is not good for me". Patient's strengths: Notes: None identified. Identify supports outside of hospital: Notes: None identified. Discharge criteria: Notes: Psychotic symptoms will be reduced or eliminated with return to baseline functioning in affect, thinking and behavior prior to discharge. Initial disposition plan/considerations: Notes: Help ct. formalize follow up care in the community. Master Treatment Plan Required Signatures Psychiatrist signature: Answers: JAXSON Laguerre: RN on-shift signature: Answers: RN: Patient signature: Answers: Patient: Date Signed: 01/18/2018 08:27 AM Electronically Signed By:Anna Jacobs
[2018-01-18] MEDS: PANTOPRAZOLE SODIUM 40 MG TAB PO SCH (08:37)
--- NOTE | 2018-01-18 08:38 | ASMTCMCOM ---
CM Note CM Note Notes: Met with ct. to develop MTP. Ct. is homeless man. It appears that he has been homeless in the [facility] area.Ct. presented as somewhat disorganized. He engaged in conversation but was perseverating about wanting to discharge [facility] and/or transferred to a different hospital. Ct. did not present as a very reliable historian. He denied having MH issues but related that he has been making poor choices.He refused to discuss history of psychiatric admissions but made references to multiple admissions. He gave a list of medications (i.e., Zyprexa, Haldol Respirdal etc.) that he had been on but reported that all of them gave him serious side effects and said that he will refuse taking them. He said that the only medication that was agreeable with him is Ativan. Ct. denied getting MH services in the community. Date Signed: 01/18/2018 08:38 AM Electronically Signed By:Anna Jacobs
--- NOTE | 2018-01-18 14:15 | BAPA ---
DATE OF SERVICE: 01/18/2018 CHIEF COMPLAINT: "I don't need to be here. I need to be transferred to somewhere else. I do not have a mental illness. I was just trying to get to another part of the [facility]." HISTORY OF PRESENT ILLNESS: The patient refuses to meet with this MANAGER UTILITY for psychiatric assessment and history. Information for the psychiatric assessment and history will be taken from the ED note and the TLC evaluation and will be indicated as such. From the ED note dated 01/17/2018, the patient presented to the ED by EMS. The patient was reportedly found sitting in the middle of traffic in [place]. The patient was placed on an M1 hold due to concern for his well-being and transported to the [facility] ER. At the ER, the patient was pacing the room. The patient reported "I'm on too many medications and I made some bad decisions." From the TLC evaluation, the patient was placed on an M1 hold with M1 hold start date of 01/17/2018, and time of 0945. The patient reported to the TLC armament repairer "I'm not doing too good. It's hard for me to talk right now." The patient was placed on an M1 hold by [place] [employer] due to the patient sitting in the middle of the road crying. The patient was moved from the roadway 3 times and patient would continue to return to the middle of the roadway. The patient was unable to complete a sentence and kept saying he did not want to go. The patient's UDS was negative for all tested substances. The patient would not respond to interviewer questions during TLC evaluation. The patient did have medical records on his person from [facility] dated 01/04/2018, with a list of medications including BuSpar 10 mg p.o. t.i.d. , Klonopin 0.5 mg p.o. b.i.d., Depakote 1000 mg p.o. daily, Vistaril 25 mg p.o. q.6 hours p.r.n. for anxiety, Zyprexa 20 mg p.o. b.i.d. for psychosis, and perphenazine 4 mg p.o. b.i.d. for psychosis. PAST PSYCHIATRIC HISTORY: The patient has a past diagnosis of schizophrenia and generalized anxiety disorder. With regard to prior suicide attempts, no history was provided by the patient and there is no outside collateral available at this time. The patient did not provide any history regarding prior hospitalizations and currently there is no outside collateral available. The patient did have medical records on his person at time of presentation to the ED from [facility] with several psychotropic medications listed. We will continue to gather past psychiatric history throughout the patient's hospitalization. ALLERGIES: There are several allergies listed on the patient's record, including Haldol, ketamine, olanzapine, and psychotropic medications. However, it is unknown at this time whether the patient actually has allergies to these medications or if the patient is just stating this due to his unwillingness to be treated for psychosis. CURRENT MEDICATIONS: It is unknown at this time if the patient was taking scheduled medications prior to his presentation at the ER. There are medications listed from a previous hospitalization at [facility] listed above. PAST MEDICAL HISTORY: The patient's past medical history is unknown at this time as the patient refused to meet with this [facility]GER [facility]ILITY and answer past medical history questions. The patient also refused to meet with the TLC armament repairer and provide any past medical history. Past medical history will continue to be gathered throughout the patient's stay. SOCIAL HISTORY: Unknown at this time as patient refuses to meet with this [employer]GER UTILITY to answer questions regarding his social history. The patient also refused to meet with TLC armament repairer to provide any information regarding social history. SUBSTANCE USE HISTORY: The patient's substance use history is unknown at this time as patient refused to meet with this MANAGER UTILITY to provide substance use history information. Substance use history will continue to be gathered throughout the patient's hospitalization. FAMILY PSYCHIATRIC HISTORY: Th patient's family psychiatric history is unknown at this time as patient refuses to meet with this [facility]GER [employer] to answer family psychiatric history interview questions. The patient also refused to meet with the TLC armament repairer to answer family psychiatric history questions. Family psychiatric history will continue to be gathered throughout the patient's stay. ADMISSION LABS AND STUDIES: CBC from 01/17/2018 within normal limits. BMP from 01/17/2018 within normal limits. Hemoglobin A1c from 01/17/2018 was elevated at 6.3. Estimated average glucose is elevated at 134. Liver function from 01/17/2018 within normal limits. Fasting lipid panel from 01/17/2018 within normal limits except LDL cholesterol calculated was 122, elevated, and non-HDL cholesterol was elevated at 145. HDL cholesterol was low at 36 and cholesterol/HDL ratio was elevated at 5.03. Toxicology screen from 01/17/2018 was negative for all substances of abuse and negative for ethyl alcohol. MENTAL STATUS EXAM: The patient is a well-nourished male looking stated chronological age. Attire is appropriate and dress is casual, neat and clean. Grooming status is appropriate and clean. Ambulation is independent. Gait is normal and coordinated. Posture is normal and relaxed. Eye contact is appropriate and adequate. Motor activity is appropriate with purposeful, organized, coordinated movements with no involuntary movements noted. The patient's attitude is uncooperative, guarded, defensive. The patient appears disinterested and does not relate well to this interviewer. Language production is un-spontaneous, rate is pressured. Latency of response is shortened with irritable tone, appropriate volume, and amount is hyper- talkative. Articulation is clear. The patient reports mood as okay with expansive and incongruent affect. The patient's thought process is nonlinear and illogical with loose associations, tangential thought. The patient is disorganized both in behavior and thought process. The patient does not report suicidal, homicidal thoughts, ideas, or plans. The patient denies auditory or visual hallucinations. The patient denies delusions. The patient does not appear to be attending to internal stimuli. The patient is oriented to person and place. The patient's attention and concentration are poor. The patient's insight and judgment are poor. Unable to appropriately assess cognitive function at this time as patient refuses to meet with this MANAGER UTILITY for a full psychiatric evaluation. The patient does not report undesirable side effects from medications. DIAGNOSES: Unspecified psychosis. FORMULATION: The patient is a 37-year-old male, single, unemployed, homeless, living in the [place], [place] area who presents to the hospital involuntarily due to a risk to harm himself and is currently on an M1 hold. The patient requires continued inpatient care because of current psychosis and recent risky behavior, including sitting in the middle of a road. The patient presents with problems of psychosis. The patient's life has been affected by these problems, including recent risky behavior that placed his life in danger. The patient has a past psychiatric history of schizophrenia. The patient is at a high suicide safety risk due to current psychosis and recent suicide attempts by sitting in the middle of a road. Protective factors while hospitalized include ongoing safety checks, active involvement in treatment, and support from our treatment team. The patient could benefit from inpatient hospitalization for safety, crisis stabilization, and medication evaluation. PLAN: (1) Psychotropic medications. The patient refuses medications at this time. Plan is to continue to observe patient for response and side effects from medications, and ongoing monitoring and evaluation. (2) Review with patient informed consent and recommendations for psychotropic medication treatment listed below (3) Labs: no additional labs at this time. (4) Therapy: continue milieu and group therapy (5) Further investigation including gathering information from patients relatives and review of past case records to inform treatment plan. (6) Safety/Wellness plan and follow-up outpatient appointments to be established prior to discharge. Next steps are for patient to meet with lawn care specialist to plan a safe discharge plan and establish outpatient services for ongoing treatment. (7) Confer with inpatient treatment team regarding treatment plan. (8) Legal status: [facility] (9) Consider discharge next week if patient is in stable condition, safe, and has a safe discharge plan. ESTIMATED LENGTH OF STAY: 7-10 days PSYCHOTROPIC MEDICATION TREATMENT INFORMED CONSENT and RECOMMENDATIONS: Review nature of condition, diagnosis, and prognosis. Review nature and purpose of psychotropic medication treatment. Review type of psychotropic medications being ordered. Review risk and benefits of psychotropic medication treatment. Review probable length of time will need to take medications. Review risk and benefits of not undergoing psychotropic medication treatment. Review alternative treatments to psychotropic medications. Review psychotropic medications contraindications, drug-drug interactions, side effects, and importance of reporting any side effects to a psychiatric provider or nurse during inpatient hospitalization, and upon discharge to patients psychiatric outpatient provider, primary care provider, or other health foster care therapist. Review importance of asking a nurse, psychiatric provider, or primary care provider any questions or problems concerning the psychotropic medications. Verifty patient understands the information that has been provided, and understands, accepts, and agrees to psychotropic medications. Review patients safety plan and importance of patient to communicate to staff while hospitalized if patient is ever a danger to self/others, or unable to care for self, and upon discharge, the importance for patient to contact [facility] or [facility], or go to the nearest emergency room, if patient is ever a danger to self/others, or unable to care for self. Recommend that upon discharge patient establish medication management treatment with a psychiatric provider, establishes routine therapy appointments, and follow-up with primary care provider. Verify patient understands and agrees to these recommendations. /[id number]/MODL MTDD
--- NOTE | 2018-01-18 15:29 | PDMN ---
Medical Necessity Medical necessity: Pt meets IP criteria per & SO B-011-IP; est los >2 mn for unspecified psychosis; pt on M1 hold due to risk of harm to self; admit for further monitoring, safety, med management & crisis stabilization; hx homelessness; per H&P & order 01/17/18
[2018-01-19] MEDS: PANTOPRAZOLE SODIUM 40 MG TAB PO SCH (09:17)
--- NOTE | 2018-01-19 14:50 | ASMTCMCOM ---
CM Note CM Note Notes: The patient is paranoid and fearful; he reported that he needs to be transferred to another hospital because he is "not doing well here." The patient stated that there are "signs; like I've been seeing black cats and 13. There was the window." The patient moved from room #310 because he could see tubing outside of window that he reported was causing him difficulty breathing. Consequently, the patient moved his mattress to be in the door way. The patient was moved to room #309 and continues to move his mattress into the doorway. The patient is refusing medication, stating "it messes with my mind." The patient is observed repeatedly putting his hands in his pants and quickly removing them. The patient's speech is pressured and excessive; he often repeats the same statement. His thought process is varies from being oriented and organized to delusional. Date Signed: 01/19/2018 02:49 PM Electronically Signed By:Heather Dorsey
--- NOTE | 2018-01-19 15:58 | SOAPPROG ---
SOAP Progress Note Assessment/Plan: Assessment: 37 yo AAM with h/o schizophrenia, has long h/o multiple psych hospitalizations and h/o noncompliance with tx. Presented to [facility] disorganized, delusional and paranoid. Plan: 01/19/18 15:54 1. Patient has significant psych hx with multiple IP admissions. Most recently was at [facility] from 01/2017 to 05/2017. Patient states he "eloped" from [facility] and has not seen mental health provider or taken any meds since 05/2017. 2. Patient gives informed consent to trial of Olanzapine, but only 10mg dose at HS. He agrees to take Ativan PRN for anxiety. 3. Patient doesn't want to stay in [facility], but isn't sure where he'll go after discharge. He says he's been "traveling" around [place] since he left [facility] without any mental health treatment. 4. STC Subjective: Patient presents agitated, but cooperative and pleasant with MD and CC. He says his admission to psych was "all a mistake." He claims [facility] and things "weren't working out." He was reportedly picked up by [place] [employer] and transported to ED. He admits he was in [place] recently, but won't say where or why he was admitted to hospital. He claims he was inpatient at [facility] for 5 months from 01/2017 to 05/2017. He says he "eloped " from [place], and has been "traveling" all around the [facility] without any mental health care. He has not taken meds since 05/2017. He insists that "Haldol, Risperdal, Prolixin" cause "neurological problems" for him. He denies any adverse effects from Geodon, Abilify, Seroquel and Olanzapine. He says he doesn' t need psych meds, but is willing to try "low dose" Olanzapine and either "Atarax or Ativan" for anxiety. He denies AH/VH, but tells MD that he's been seeing "the number 13" and "black cats" which are "very unlucky," but won't say where he's seen them. He's been sleeping on mattress on floor by the door to his room. He c/o feeling "paranoid" and having difficulty breathing in his old room which faced the rooftop. In his new room, he feels "better." He denies any SI/HI. Objective: Vital Signs Temp Pulse Resp BP Pulse Ox 37 C 74 16 130/88 H 98 01/17/18 12:00 01/17/18 16:00 01/17/18 16:00 01/17/18 16:00 01/17/18 16:00 MSE: Affect: Labile Mood: "OK" TP: Disorganized, illogical TC: No SI/HI, paranoid delusions Insight/Judgment: Impaired - Time Spent With Patient Time Spent With Patient: 20" - Pending Discharge Pending Discharge Within 24 Hours: No Pending Discharge Within 48 Hours: No ICD10 Worksheet Patient Problems: Problems Problem Status Onset Homelessness Acute Unspecified psychosis Acute
[2018-01-19] MEDS: OLANZapine DISINTEGR 10 MG TAB PO SCH (21:21)
[2018-01-20] MEDS: PANTOPRAZOLE SODIUM 40 MG TAB PO SCH (08:52)
--- NOTE | 2018-01-20 14:13 | SOAPPROG ---
SOAP Progress Note Assessment/Plan: Assessment: 37 yo AAM with h/o schizophrenia, has long h/o multiple psych hospitalizations and h/o noncompliance with tx. Presented to [facility] disorganized, delusional and paranoid. Plan: 01/19/18 15:54 1. Patient has significant psych hx with multiple IP admissions. Most recently was at [facility] from 01/2017 to 05/2017. Patient states he "eloped" from [facility] and has not seen mental health provider or taken any meds since 05/2017. 2. Patient gives informed consent to trial of Olanzapine, but only 10mg dose at HS. He agrees to take Ativan PRN for anxiety. 3. Patient doesn't want to stay in [facility], but isn't sure where he'll go after discharge. He says he's been "traveling" around [place] since he left [facility] without any mental health treatment. 4. STC PLAN: 01/20/18 14:10 1. Patient refused to take Olanzapine last night, stating he was "allergic" and that it "didn't help." He told MD yesterday he didn't have an allergy and would be willing to take a "low dose." He c/o gynecomastia from Risperdal and "neurological problems" with Haldol and Prolixin, but denied any adverse effects from Olanzapine. 2. Patient is much calmer today, less restless. He has been sitting in chair and watching football most of the afternoon. 3. Ate 100% of meals. 4. Slept 9.5 hrs. 5. STC Subjective: Patient dressed appropriately in sweater and jeans. He spent most of the day watching sports on TV. He is calmer, less restless and less pressured speech. He still refuses to take any antipsychotic medications. Objective: Vital Signs Temp Pulse Resp BP Pulse Ox 37 C 74 16 130/88 H 98 01/17/18 12:00 01/17/18 16:00 01/17/18 16:00 01/17/18 16:00 01/17/18 16:00 MSE: Affect: Flat Mood: "OK" TP: Disorganized, illogical TC: Denies SI/HI, still has paranoid delusions (sleeping on mattress by door) Insight/Judgment: Poor - Time Spent With Patient Time Spent With Patient: 15" - Pending Discharge Pending Discharge Within 24 Hours: No Pending Discharge Within 48 Hours: No ICD10 Worksheet Patient Problems: Problems Problem Status Onset Homelessness Acute Unspecified psychosis Acute
[2018-01-20] MEDS: OLANZapine DISINTEGR 10 MG TAB PO SCH (20:20)
[2018-01-21] MEDS: PANTOPRAZOLE SODIUM 40 MG TAB PO SCH ×2 (08:50→08:52)
[2018-01-21] MEDS ORDERED: chlorproMAZINE HCL 25 MG TAB PO PRN (08:51)
--- NOTE | 2018-01-21 09:08 | SOAPPROG ---
SOAP Progress Note Assessment/Plan: Assessment: Schizophrenia, paranoid, severe psychosis. Non-adherence to medical treatment. No improvement noted. (see subjective/objective note). Patient is not safe to discharge at this time as patient continues to exhibit signs of acute psychosis. Patient requires continued inpatient care because of current acute, and requires inpatient level of care to stabilize in order to no longer be gravely disabled due to mental illness. Patient could benefit from continued inpatient hospitalization for crisis stabilization, safety, and medication evaluation. Patient has refused medications since admission, today he reports he is willing to take certain medications as noted in Subjective. If patient continues to refuse medications will pursue court ordered medications. Re- evaluate need for court ordered medications tomorrow based on patients level of adherence today. Plan: (1) Psychotropic medications: After reviewing options, risks, and benefits patient agrees to Zyprexa Zydis 10 mg BID and Thorazine 25 mg po TID. No other medication changes at this time as more time is needed to determine ongoing tolerability and efficacy. Plan is to continue to observe patient for response and side effects from medications, and ongoing monitoring and evaluation. (2) Review with patient informed consent and recommendations for psychotropic medication treatment listed below (3) Labs: no additional labs at this time (4) Therapy: continue milieu and group therapy (5) Further investigation including gathering information from patients relatives and review of past case records to inform treatment plan. (6) Safety/Wellness plan and follow-up outpatient appointments to be established prior to discharge. Next steps are for patient to meet with clinical manager home care to plan a safe discharge plan and establish outpatient services for ongoing treatment. (7) Confer with inpatient treatment team regarding treatment plan. (8) Legal status: [facility] (9) Consider discharge next week if patient is in stable condition, safe, and has a safe discharge plan. PSYCHOTROPIC MEDICATION TREATMENT INFORMED CONSENT and RECOMMENDATIONS: Review nature of condition, diagnosis, and prognosis. Review nature and purpose of psychotropic medication treatment. Review type of psychotropic medications being ordered. Review risk and benefits of psychotropic medication treatment. Review probable length of time patient will need to take medications. Review risk and benefits of not undergoing psychotropic medication treatment. Review alternative treatments to psychotropic medications. Review psychotropic medications contraindications, drug-drug interactions, side effects, and importance of reporting any side effects to a psychiatric provider or nurse during inpatient hospitalization, and upon discharge to patients psychiatric outpatient provider, primary care provider, or other health companion caregiver. Review importance of asking a nurse, psychiatric provider, or primary care provider any questions or problems concerning the psychotropic medications. Verify patient understands the information that has been provided, and understands, accepts, and agrees to psychotropic medications. Review patients safety plan and importance of patient to report to staff while hospitalized if patient is ever a danger to self/others, or unable to care for self, and upon discharge, the importance for patient to contact [facility] or [facility], or go to the nearest emergency room, if patient is ever a danger to self/others, or unable to care for self. Recommend that upon discharge patient establish medication management treatment with a psychiatric provider, establishes routine therapy appointments, and follow-up with primary care provider. Verify patient understands and agrees to these recommendations. 01/21/18 09:10 Subjective: Following up with patient for evaluation of psychosis and safety. Patient reports, "Yes, I am doing okay. Just want you to know though that most medications I cannot take, cause reactions. I am willing to take some of them though, just want to get out of here as soon as possible, my sister said she would help me." Patient expresses the following psychiatric symptoms severe anxiety. Patient reports he has not been taking medications as prescribed, and describes response to medications as poor. Patient states he is now willing to start taking medications. Patient agrees to Zyprexa Zydis 10 mg po BID, and requests Thorazine as needed. Patient reports appetite as good, and reports eating all meals. Patient describes getting 8 hours of sleep. Patient agrees to Thorazine 25 mg po TID. Objective: Vital Signs Temp Pulse Resp BP Pulse Ox 37 C 74 16 130/88 H 98 01/17/18 12:00 01/17/18 16:00 01/17/18 16:00 01/17/18 16:00 01/17/18 16:00 NURSING REPORT: Consulted with nursing for update on patients progress in treatment. Nurses report patient is not engaged in treatment, is not attending groups, slept 9.5 hours, expresses the following psychiatric symptoms: moderate anxiety, exhibits the following psychiatric symptoms: paranoid, is eating all meals, is attending to ADLs, has not agreeable to medications and has not been taking as prescribed; denies SI/HI, denies A/V hallucinations, and denies delusions. MD UPDATE FROM WEEKEND: very psychotic, paranoid, but calmer on Sunday. Refuses all antipsychotic medications. Patient was at [facility] x 5 months 06-03-17. Off meds since May without OP tx. Will likely need COM. MSE: The patient is a well-nourished male looking stated chronological age. Attire is appropriate and dress is casual and is neat. Grooming status is appropriate and neat. Ambulation is independent. Gait is normal and coordinated. Posture is normal and relaxed. Eye contact is appropriate, and adequate. Motor activity is appropriate with purposeful, organized, coordinated movements; with no involuntary movements. Attitude is cooperative and friendly. Patient appears distractible and does not relate well to this interviewer. Language production is spontaneous. R/R/V are normal. Articulation is clear. Patient reports mood as okay with incongruent and incongruent affect. Patients thought process is disorganized, non-linear, illogical, with loose associations, tangential thought. Patient does not report suicidal/homicidal thoughts, ideas, or plans. Patient denies auditory, visual hallucinations. Patient reports paranoid delusions. Patient does not appear to be attending to internal stimuli. Patients attention and concentration are poor. Patient is oriented to person, place, time. Patients insight is poor. Patients judgment is poor. No evidence of gross cognitive dysfunction at any point during the interview. No evidence of apparent dysfunction in recent or remote memory. - Time Spent With Patient Time Spent With Patient: 15 minutes, met with patient individually. - Pending Discharge Pending Discharge Within 24 Hours: No Pending Discharge Within 48 Hours: No ICD10 Worksheet Patient Problems: Problems Problem Status Onset Homelessness Acute Unspecified psychosis Acute
[2018-01-21] MEDS: OLANZapine DISINTEGR 10 MG TAB PO SCH ×2 (09:31→21:22)
[2018-01-21] MEDS: LORazepam 0.5 MG TAB PO PRN (09:35)
--- NOTE | 2018-01-21 12:15 | ASMTCMCOM ---
CM Note CM Note Notes: The patient participated in clinical treatment team rounds. He stipulated to low doses of medication. Per his discussion with the provider, the patient agreed to take Thorazine, 25mg, TID, PRN and Zyprexa 10mg, BID. The patient continues to move his mattress into the doorway to sleep. He reported having contact with his sister, who lives in [place]. The patient reported that he could possible go to [place], where many of his relatives live and access their support. Date Signed: 01/21/2018 12:14 PM Electronically Signed By:Heather Dorsey
[2018-01-22] MEDS: LORazepam 0.5 MG TAB PO PRN ×2 (01:48→08:11)
[2018-01-22] MEDS: OLANZapine DISINTEGR 10 MG TAB PO SCH ×3 (01:48→20:14)
[2018-01-22] MEDS ORDERED: diphenhydrAMINE 25 MG CAP PO ONE ×2 (01:53→02:00)
--- NOTE | 2018-01-22 08:04 | SOAPPROG ---
SOAP Progress Note Assessment/Plan: Assessment: Schizophrenia, paranoid, disorganized. Severe psychosis. Non-adherence to medical treatment. No improvement noted. (see subjective/objective note). Patient is not safe to discharge at this time as patient continues to exhibit signs of acute psychosis. Patient requires continued inpatient care because of current acute, and requires inpatient level of care to stabilize in order to no longer be gravely disabled due to mental illness. Patient could benefit from continued inpatient hospitalization for stabilization, safety, and medication evaluation. Patient has refused medications since admission, today he reports he is willing to take certain medications as noted in Subjective. If patient continues to refuse medications will pursue court ordered medications. Re- evaluate need for court ordered medications tomorrow based on patients level of adherence today. Plan: (1) Psychotropic medications: After reviewing options, risks, and benefits patient agrees to Zyprexa Zydis 10 mg BID and Thorazine 25 mg po TID. No other medication changes at this time as more time is needed to determine ongoing tolerability and efficacy. Plan is to continue to observe patient for response and side effects from medications, and ongoing monitoring and evaluation. (2) Review with patient informed consent and recommendations for psychotropic medication treatment listed below (3) Labs: no additional labs at this time (4) Therapy: continue milieu and group therapy (5) Further investigation including gathering information from patients relatives and review of past case records to inform treatment plan. (6) Safety/Wellness plan and follow-up outpatient appointments to be established prior to discharge. Next steps are for patient to meet with long term care pharmacist to plan a safe discharge plan and establish outpatient services for ongoing treatment. (7) Confer with inpatient treatment team regarding treatment plan. (8) Legal status: [facility] (9) Consider discharge next week if patient is in stable condition, safe, and has a safe discharge plan. (10) Consult with health care administrator to establish safe discharge plan for patient. PSYCHOTROPIC MEDICATION TREATMENT INFORMED CONSENT and RECOMMENDATIONS: Review nature of condition, diagnosis, and prognosis. Review nature and purpose of psychotropic medication treatment. Review type of psychotropic medications being ordered. Review risk and benefits of psychotropic medication treatment. Review probable length of time patient will need to take medications. Review risk and benefits of not undergoing psychotropic medication treatment. Review alternative treatments to psychotropic medications. Review psychotropic medications contraindications, drug-drug interactions, side effects, and importance of reporting any side effects to a psychiatric provider or nurse during inpatient hospitalization, and upon discharge to patients psychiatric outpatient provider, primary care provider, or other health health care administrator. Review importance of asking a nurse, psychiatric provider, or primary care provider any questions or problems concerning the psychotropic medications. Verify patient understands the information that has been provided, and understands, accepts, and agrees to psychotropic medications. Review patients safety plan and importance of patient to report to staff while hospitalized if patient is ever a danger to self/others, or unable to care for self, and upon discharge, the importance for patient to contact [facility] or [facility], or go to the nearest emergency room, if patient is ever a danger to self/others, or unable to care for self. Recommend that upon discharge patient establish medication management treatment with a psychiatric provider, establishes routine therapy appointments, and follow-up with primary care provider. Verify patient understands and agrees to these recommendations. 01/22/18 08:04 Subjective: Following up with patient for evaluation of psychosis and safety. Patient reports, "I am doing okay. I didn't take the medications last night or yesterday because they did not give them to me." Patient expresses the following psychiatric symptoms none. Patient reports not taking medications as prescribed, and reports it was not his fault that he didn't take the medications , and patient disagrees that he refused medications when administered by nursing staff. Patient does not report undesirable side effects from the medications, and agrees to continue current medications. Patient reports appetite as good, and reports eating all meals. Patient describes getting 8 hours of sleep. Patient requests continued as-needed Thorazine and Ativan. Patient reports he plans to travel around after discharge and reports he is not sure where he plans to go after leaving hospital. Patient is unable to provide this RETAIL HELPER with a clear plan after he discharges. Objective: Vital Signs Temp Pulse Resp BP Pulse Ox 37 C 74 16 130/88 H 98 01/17/18 12:00 01/17/18 16:00 01/17/18 16:00 01/17/18 16:00 01/17/18 16:00 NURSING REPORT: Consulted with nursing for update on patients progress in treatment. Nurses report patient is not engaged in treatment, is not attending groups, slept 9 hours, expresses the following psychiatric symptoms: moderate anxiety, exhibits the following psychiatric symptoms: paranoid, disorganized, and tangential; is eating all meals, is attending to ADLs, continues to not be agreeable to medications and has not been taking medications as prescribed; denies SI/HI, denies A/V hallucinations, and denies delusions. MD UPDATE FROM WEEKEND: very psychotic, paranoid, but calmer on Sunday. Refuses all antipsychotic medications. Patient was at [facility] x 5 months 06-03-17. Off meds since May without OP tx. Will likely need COM. CASE MANAGEMENT: health care administrator to work with patient to establish safe discharge plan. Currently awaiting patients records from [facility] per patients request. MEDICATION EDUCATION: educate patient on the importance of him taking medications as prescribed. MSE: The patient is a well-nourished male looking stated chronological age. Attire is appropriate and dress is casual and is neat. Grooming status is appropriate and neat. Ambulation is independent. Gait is normal and coordinated. Posture is normal and relaxed. Eye contact is appropriate, and adequate. Motor activity is appropriate with purposeful, organized, coordinated movements; with no involuntary movements. Attitude is cooperative and friendly. Patient appears distractible and does not relate well to this interviewer. Language production is spontaneous. R/R/V are normal. Articulation is clear. Patient reports mood as okay with incongruent and expansive affect. Patients thought process is disorganized, non-linear, illogical, with loose associations, tangential thought. Patient does not report suicidal/homicidal thoughts, ideas, or plans. Patient denies auditory, visual hallucinations. Patient denies delusions. Patient is paranoid. Patient does not appear to be attending to internal stimuli. Patients attention and concentration are poor. Patient is oriented to person, place, time. Patients insight is poor. Patients judgment is poor. No evidence of gross cognitive dysfunction at any point during the interview. No evidence of apparent dysfunction in recent or remote memory. - Time Spent With Patient Time Spent With Patient: 15 minutes, met with patient individually. - Pending Discharge Pending Discharge Within 24 Hours: No Pending Discharge Within 48 Hours: No ICD10 Worksheet Patient Problems: Problems Problem Status Onset Homelessness Acute Non-adherence to medical treatment Acute Unspecified psychosis Acute Schizophrenia, paranoid type Chronic
[2018-01-22] MEDS: PANTOPRAZOLE SODIUM 40 MG TAB PO SCH (12:20)
--- NOTE | 2018-01-22 13:26 | ASMTCMCOM ---
CM Note CM Note Notes: Client continues to appear to be unstable and disorganized at times. Client has no/limited insight towards taking medications as needed in order to become more stable. Client continues to sleep in the middle of his room's door way to "make the noises less loud." CC waiting for referral to [facility] and or any other [facility] centers, due to client's unwillingness to commit to going/staying at a specific place, etc. Will continue to monitor. Date Signed: 01/22/2018 01:25 PM Electronically Signed By:Osmar Major
--- NOTE | 2018-01-23 07:22 | SOAPPROG ---
SOAP Progress Note Assessment/Plan: Assessment: Schizophrenia, paranoid, disorganized, antisocial personality disorder per history. Slight improvement noted, notably patient adherence to medications yesterday (see subjective/objective note). Patient is not safe to discharge at this time as patient continues to exhibit signs of acute psychosis. Patient requires continued inpatient care because of current acute, and requires inpatient level of care to stabilize in order to no longer be gravely disabled due to mental illness. Patient could benefit from continued inpatient hospitalization for stabilization, safety, and medication evaluation. Plan: (1) Psychotropic medications: After reviewing options, risks, and benefits patient agrees to continue medications. Ativan is lowered to reduce risk of benzo withdrawal at time of discharge. No other medication changes at this time as more time is needed to determine ongoing tolerability and efficacy. Plan is to continue to observe patient for response and side effects from medications, and ongoing monitoring and evaluation. (2) Review with patient informed consent and recommendations for psychotropic medication treatment listed below (3) Labs: no additional labs at this time (4) Therapy: continue milieu and group therapy (5) Further investigation including gathering information from patients relatives and review of past case records to inform treatment plan. (6) Safety/Wellness plan and follow-up outpatient appointments to be established prior to discharge. Next steps are for patient to meet with career consultant to plan a safe discharge plan and establish outpatient services for ongoing treatment. (7) Confer with inpatient treatment team regarding treatment plan. (8) Legal status: [facility] (9) Consider discharge next week if patient is in stable condition, safe, and has a safe discharge plan. PSYCHOTROPIC MEDICATION TREATMENT INFORMED CONSENT and RECOMMENDATIONS: Review nature of condition, diagnosis, and prognosis. Review nature and purpose of psychotropic medication treatment. Review type of psychotropic medications being ordered. Review risk and benefits of psychotropic medication treatment. Review probable length of time patient will need to take medications. Review risk and benefits of not undergoing psychotropic medication treatment. Review alternative treatments to psychotropic medications. Review psychotropic medications contraindications, drug-drug interactions, side effects, and importance of reporting any side effects to a psychiatric provider or nurse during inpatient hospitalization, and upon discharge to patients psychiatric outpatient provider, primary care provider, or other health rn care transition. Review importance of asking a nurse, psychiatric provider, or primary care provider any questions or problems concerning the psychotropic medications. Verify patient understands the information that has been provided, and understands, accepts, and agrees to psychotropic medications. Review patients safety plan and importance of patient to report to staff while hospitalized if patient is ever a danger to self/others, or unable to care for self, and upon discharge, the importance for patient to contact [facility] or [facility], or go to the nearest emergency room, if patient is ever a danger to self/others, or unable to care for self. Recommend that upon discharge patient establish medication management treatment with a psychiatric provider, establishes routine therapy appointments, and follow-up with primary care provider. Verify patient understands and agrees to these recommendations. 01/23/18 07:23 Subjective: Following up with patient for evaluation of psychosis and safety. Patient reports, "I am doing better, took the medications yesterday, really want to get out of here soon. Do you guys help with like travel to another state? I want to go to [place] where I have family, and this would be better for me." Patient expresses the following psychiatric symptoms none. Patient reports taking medications as prescribed, and reports no side effects. Patient does not report undesirable side effects from the medications, and agrees to continue current medications. Patient reports appetite as good, and reports eating all meals. Patient describes getting 9 hours of sleep. Patient requests continued as-needed Thorazine and Ativan. Patient describes discharge plans as to move to [place] where he has more support from family. Patient states he plans to contact his aunt today to establish plans to travel to [place] after discharge. Objective: Vital Signs Temp Pulse Resp BP Pulse Ox 37 C 74 16 130/88 H 98 01/17/18 12:00 01/17/18 16:00 01/17/18 16:00 01/17/18 16:00 01/17/18 16:00 NURSING REPORT: Consulted with nursing for update on patients progress in treatment. Nurses report patient is not engaged in treatment, is not attending groups, slept 9 hours, expresses the following psychiatric symptoms: moderate anxiety, exhibits the following psychiatric symptoms: paranoid, disorganized, and tangential; is eating all meals, is attending to ADLs, was agreeable to medications yesterday and taking medications as prescribed; denies SI/HI, denies A/V hallucinations, and denies delusions. MD UPDATE FROM WEEKEND: very psychotic, paranoid, but calmer on Sunday. Refuses all antipsychotic medications. Patient was at [facility] x 5 months 10- 17-17 2-18-18. Off meds since May without OP tx. Will likely need COM. CASE MANAGEMENT: child care attendant to work with patient to establish safe discharge plan. Currently awaiting patients records from [facility] per patients request. RECORDS REVIEW FROM [facility]: 01/31/17 06/12/17. Patient left against medical advice without medications; did not return to hospital exercising U-15 status. Dx: schioaffective disorder, antisocial personality disorder. Medications at time of discharge: Zyprexa 20 mg BID, Oxcarbazepine 450 mg BID, Trazodone 50 mg po QHS PRN, Hydroxyzine 50 mg po Q6HRS PRN, Propranolol 40 mg po QAM & 60 mg PO QHS, multivitamin, fish oil 1,000 mg po QD. MEDICATION EDUCATION: educate patient on the importance of him continuing to take medications as prescribed. MSE: The patient is a well-nourished male looking stated chronological age. Attire is appropriate and dress is casual and is neat. Grooming status is appropriate and neat. Ambulation is independent. Gait is normal and coordinated. Posture is normal and relaxed. Eye contact is appropriate, and adequate. Motor activity is appropriate with purposeful, organized, coordinated movements; with no involuntary movements. Attitude is cooperative and friendly. Patient appears attentive and relates well to this interviewer. Language production is spontaneous. R/R/V are normal. Articulation is clear. Patient reports mood as okay with congruent affect. Patients thought process is linear and logical with no loose associations. Patient does not report suicidal/homicidal thoughts, ideas, or plans. Patient denies auditory, visual hallucinations. Patient denies delusions. Patient is paranoid. Patient does not appear to be attending to internal stimuli. Patients attention and concentration are poor. Patient is oriented to person, place, time, and situation. Patients insight is poor. Patients judgment is poor. No evidence of gross cognitive dysfunction at any point during the interview. No evidence of apparent dysfunction in recent or remote memory. - Time Spent With Patient Time Spent With Patient: 15 minutes, met with patient individually. - Pending Discharge Pending Discharge Within 24 Hours: No Pending Discharge Within 48 Hours: No ICD10 Worksheet Patient Problems: Problems Problem Status Onset Homelessness Acute Non-adherence to medical treatment Acute Unspecified psychosis Acute Schizophrenia, paranoid type Chronic
[2018-01-23] MEDS: OLANZapine DISINTEGR 10 MG TAB PO SCH ×2 (09:16→20:05)
[2018-01-23] MEDS: LORazepam 0.5 MG TAB PO PRN (09:16)
[2018-01-23] MEDS: PANTOPRAZOLE SODIUM 40 MG TAB PO SCH (14:18)
--- NOTE | 2018-01-24 07:51 | SOAPPROG ---
SOAP Progress Note Assessment/Plan: Assessment: Schizophrenia, paranoid, disorganized, antisocial personality disorder per history. Improvement noted (see subjective/objective note). Patient to discharge tomorrow. Plan: (1) Psychotropic medications: After reviewing options, risks, and benefits patient agrees to continue medications. Ativan is discontinued to reduce risk of benzo withdrawal at time of discharge. No other medication changes at this time as more time is needed to determine ongoing tolerability and efficacy. Plan is to continue to observe patient for response and side effects from medications, and ongoing monitoring and evaluation. (2) Review with patient informed consent and recommendations for psychotropic medication treatment listed below (3) Labs: no additional labs at this time (4) Therapy: continue milieu and group therapy (5) Further investigation including gathering information from patients relatives and review of past case records to inform treatment plan. (6) Safety/Wellness plan and follow-up outpatient appointments to be established prior to discharge. Next steps are for patient to meet with physician assistant primary care to plan a safe discharge plan and establish outpatient services for ongoing treatment. (7) Confer with inpatient treatment team regarding treatment plan. (8) Legal status: [facility] (9) Consider discharge next week if patient is in stable condition, safe, and has a safe discharge plan. PSYCHOTROPIC MEDICATION TREATMENT INFORMED CONSENT and RECOMMENDATIONS: Review nature of condition, diagnosis, and prognosis. Review nature and purpose of psychotropic medication treatment. Review type of psychotropic medications being ordered. Review risk and benefits of psychotropic medication treatment. Review probable length of time patient will need to take medications. Review risk and benefits of not undergoing psychotropic medication treatment. Review alternative treatments to psychotropic medications. Review psychotropic medications contraindications, drug-drug interactions, side effects, and importance of reporting any side effects to a psychiatric provider or nurse during inpatient hospitalization, and upon discharge to patients psychiatric outpatient provider, primary care provider, or other health group care worker. Review importance of asking a nurse, psychiatric provider, or primary care provider any questions or problems concerning the psychotropic medications. Verify patient understands the information that has been provided, and understands, accepts, and agrees to psychotropic medications. Review patients safety plan and importance of patient to report to staff while hospitalized if patient is ever a danger to self/others, or unable to care for self, and upon discharge, the importance for patient to contact [facility] or [facility], or go to the nearest emergency room, if patient is ever a danger to self/others, or unable to care for self. Recommend that upon discharge patient establish medication management treatment with a psychiatric provider, establishes routine therapy appointments, and follow-up with primary care provider. Verify patient understands and agrees to these recommendations. 01/24/18 07:50 Subjective: Following up with patient for evaluation of psychosis and safety. Patient reports, "I am doing much better, would like to discharge and go to [place]. I have a strong support system in [place] including my grandmother and my aunts. It would be a better place for me than to go back to [place]." Patient expresses the following psychiatric symptoms none. Patient reports taking medications as prescribed, and reports no side effects. Patient does not report undesirable side effects from the medications, and agrees to continue current medications. Patient reports appetite as good, and reports eating all meals. Patient describes getting 9 hours of sleep. Patient describes discharge plans as to move to [place] where he has more support from family. Patient agrees to discharge tomorrow and travel to [place] by [employer]. Objective: Vital Signs Temp Pulse Resp BP Pulse Ox 37 C 74 16 130/88 H 98 01/17/18 12:00 01/17/18 16:00 01/17/18 16:00 01/17/18 16:00 01/17/18 16:00 NURSING REPORT: Consulted with nursing for update on patients progress in treatment. Nurses report patient is engaged in treatment, is attending groups, slept 9 hours, expresses the following psychiatric symptoms: mild anxiety, exhibits the following psychiatric symptoms: anxious; is eating all meals, is attending to ADLs, taking medications as prescribed; denies SI/HI, denies A/V hallucinations, and denies delusions. CASE MANAGEMENT: aged or disabled carer to purchase ticket for [employer] to [place], [place] MEDICATION EDUCATION: educate patient on the importance of him continuing to take medications as prescribed. MSE: The patient is a well-nourished male looking stated chronological age. Attire is appropriate and dress is casual and is neat. Grooming status is appropriate and neat. Ambulation is independent. Gait is normal and coordinated. Posture is normal and relaxed. Eye contact is appropriate, and adequate. Motor activity is appropriate with purposeful, organized, coordinated movements; with no involuntary movements. Attitude is cooperative and friendly. Patient appears attentive and relates well to this interviewer. Language production is spontaneous. R/R/V are normal. Articulation is clear. Patient reports mood as okay with congruent affect. Patients thought process is linear and logical with no loose associations. Patient does not report suicidal/homicidal thoughts, ideas, or plans. Patient denies auditory, visual hallucinations. Patient denies delusions. Patient is paranoid. Patient does not appear to be attending to internal stimuli. Patients attention and concentration are poor. Patient is oriented to person, place, time, and situation. Patients insight is poor. Patients judgment is poor. No evidence of gross cognitive dysfunction at any point during the interview. No evidence of apparent dysfunction in recent or remote memory. - Time Spent With Patient Time Spent With Patient: 30 minutes, met with patient individually and patient met with treatment team to discuss discharge plan. - Pending Discharge Pending Discharge Within 24 Hours: Yes Pending Discharge Within 48 Hours: No Pending Discharge Date: 01/25/18 Pending Discharge Time: 11:00 ICD10 Worksheet Patient Problems: Problems Problem Status Onset Antisocial personality disorder Acute Homelessness Acute Malingering Acute Schizophrenia, paranoid type Chronic
[2018-01-24] MEDS: OLANZapine DISINTEGR 10 MG TAB PO SCH ×2 (08:42→20:00)
[2018-01-24] MEDS: PANTOPRAZOLE SODIUM 40 MG TAB PO SCH (08:42)
--- NOTE | 2018-01-24 11:59 | ASMTBHDC ---
Notes Note: Notes: CC confirmed client's discharge plan with provider and treatement team. Client is planned to discharge tomorrow to [place] and then caught his bus to [place], etc. See other instructions. Client will be going to [place] (where his support network is located). Client and staff is aware of his discharge plan. Date Signed: 01/24/2018 11:58 AM Electronically Signed By:Osmar Major
[2018-01-24] MEDS ORDERED: CLOTRIMAZOLE 1% 15 GM CRTUBE TP PRN (13:31)
[2018-01-25] MEDS: PANTOPRAZOLE SODIUM 40 MG TAB PO SCH ×3 (08:02→08:04)
--- NOTE | 2018-01-25 14:30 | BDS ---
REASON FOR ADMISSION: From the ED note dated 01/17/2018, the patient presented to the ED via EMS with reports of being on a hold due to being a risk to himself. The patient was reportedly found sitting in the middle of traffic in [place]. Police assisted him to the side of the road, but he continued to relocate himself to the middle of the road. Police were concerned for his well being, placed him on a hold, and transported him to the [facility] ER. The patient was admitted involuntarily and on an M1 hold due to being a danger to himself. The patient was admitted for safety, crisis stabilization, and medication management. ADMITTING DIAGNOSES: 1. Schizophrenia, paranoid type. 2. Nonadherence to medical treatment. 3. Homelessness. 4. Rule out antisocial personality disorder. 5. Rule out malingering. 6. Rule out drug-seeking behavior. ADMISSION PHYSICAL EXAM: The patient was seen for an Internal Medicine consultation on 01/17/2018, for medical clearance for inpatient psychiatric hospitalization and treatment. The patient was medically cleared for inpatient psychiatric hospitalization and treatment. For further details, please refer to consultation dated 01/17/2018. ADMISSION LABS: CBC from 01/17/2018, within normal limits. BMP from 01/17/2018 , within normal limits. Hemoglobin A1c from 01/17/2018 was elevated at 6.3. Estimated average glucose was elevated at 134. Liver function from 01/17/2018, within normal limits. Lipid panel from 01/17/2018 was within normal limits, except LDL cholesterol calculated was elevated at 122. Non-HDL cholesterol was elevated at 145. HDL cholesterol was low at 36. Cholesterol/HDL ratio was elevated at 5.03. Toxicology from 01/17/2018 was negative for all substances screened. [place] level was less than 0.2 and was negative for ethyl alcohol. MAJOR PROCEDURES OR TESTS: None. HOSPITAL COURSE: The most prominent symptoms and behaviors while the patient was here were, at time of admission, patient was extremely paranoid. The patient's behavior was bizarre. Patient's thought content was disorganized and tangential. Target symptoms during hospitalization: Acute psychosis. Treatment modalities utilized were milieu and group therapy. Zyprexa Zydis 10 mg p.o. b.i.d. was started to target acute psychosis symptoms, was tolerated with no report of side effects and with good response. The patient requested Thorazine 25 mg p.o. t.i.d. p.r.n. for acute psychosis and agitation. This medication was requested once, was tolerated with no report of side effects and with good response. During the course of the patient's hospitalization, the patient was placed on a short-term certification due to his need for inpatient psychiatric hospitalization due to acute psychosis. The patient's acute psychosis, notably paranoia, improved. During the course of the patient's hospitalization, the patient was asking for Ativan several times; however, Ativan was not indicated as patient was not acutely agitated or severely anxious. The patient requested assistance with travel to [place], [place], where he has family. The patient reported that he felt as though he would do better in more of a supportive environment and would be able to get support from his family. Patient reports he has not been doing well in [place] and in the [place] area. A [employer] bus ticket was purchased for the patient to depart from [place] Sunday evening to [place], [place]. The patient agreed with this plan. The patient thanked several staff members for their assistance. On , 01/24/2018, after purchasing the [employer] bus ticket and establishing discharge plan, the patient reported to this TOY PACKER and the home child care provider, "thank you so much for allowing me to stay here for a few days to get some sleep and some food. That is the main reason I came here. Oh, and it has been good to get some Ativan too." The patient was asked on , 01/24, after establishing discharge plans and after improving, why he was sitting in traffic prior to his hospitalization, which led to current psychiatric hospitalization, and patient reported "well, I had no choice. That' s what I had to do to get here, and it was good to be able to come to the hospital and get some sleep and some food. I am ready to discharge now, and thank you for arranging transportation to [place], [place], so I can be closer to my family." The patient improved considerably, with no signs of psychiatric symptoms and no psychiatric symptoms expressed at time of discharge. The patient reports he has improved since admission, states to be in stable condition, feels safe to discharge, and he contracts for safety. Patient's response to treatment was good. There were no adverse or unexpected results of treatment. The patient was safe throughout his stay, active in treatment. At time of discharge today, 01/25/2018, a taxi voucher was provided to the patient, at the patient's request, for the patient to take the taxi to the bus stop, and then also a regional bus pass was provided to the patient at patient's request for the patient to travel to [place] in order to board the [employer] bus for his travel to [place], [place]. Several minutes prior to discharge, the patient seemed to be unwilling to leave the hospital, even though he agreed to leave the hospital yesterday, on 01/24/2018, and he agreed with his discharge plan. The patient no longer required inpatient hospitalization, and based on the patient's report of why he was here at the hospital "to get some rest and food", and also his requesting Ativan numerous times throughout his stay, both diagnoses of malingering and drug-seeking behavior were added. Security escorted the patient to the front of the hospital , where patient was to meet with a cab. At that time, the patient stated that he did not want to leave and did not want to go into the cab for his travel arrangements to [place], [place]. The patient ran into the street, ran into traffic, and Security called the [place] [employer]. The patient exhibited the same type of behaviors that he exhibited prior to his hospitalization, and it appears patient exhibits these types of behaviors and expresses psychosis and suicidal ideation in order to be hospitalized for food and residential. The [place] [employer] arrived at hospital to assist, the patient was redirectable. However, when [place] [employer] was leaving the premises, the patient again ran out into traffic. The patient had to be arrested and was to be transported to the [facility] Emergency Room for further evaluation. The treatment team consensus is the patient was in stable condition today, had a very safe discharge plan, and was ready to discharge. The treatment team consensus is the patient no longer meets criteria for inpatient hospitalization and can safely and effectively be treated within the community. CONDITION ON DISCHARGE: Patient is in stable condition and is no longer a danger to self or others, and is not gravely disabled due to mental illness. Patient is no longer in need of inpatient level of care, and can be safely and effectively treated within the community. The patients level of risk at time of discharge is low. MSE: The patient is casually dressed and with good hygiene , and looks stated age. Patient is sitting, posture is upright, and position is relaxed. Patient appears awake, alert, and responds appropriately and reasonably during interview. Patient is engaged, relates well to interviewer, and emotional facial expression is appropriate to situation and changes appropriately with topic. Patient is uncooperative, and movements are voluntary , deliberate, coordinated, and smooth and even with no inappropriate movements. Patient makes laryngeal sounds effortlessly and shares conversation appropriately; pace of conversation is appropriate, and stream of talking is fluent; articulation is clear and understandable; word choice is effortless and appropriate for education level; completes sentences, occasionally pausing to think; rate and volume are appropriate for interview and setting. Patient reports mood as euthymic. Patients affect is stable with full variable range, congruent with mood, and appropriate to speech and circumstances. Patient has linear and logical thinking, with no loose associations, tangential thought, thought blocking, concrete thinking, or any other signs of formal thought disorder. Patient denies suicidal and homicidal ideation, and denies hallucinations and delusions. Patient appears to be a reliable historian with sound judgement and good insight into current condition. Patient has no apparent dysfunction in recent or remote memory noted, and no evidence of gross cognitive dysfunction noted at any point during the interview. DISCHARGE DIAGNOSES: 1. Schizophrenia, paranoid type. 2. Nonadherence to medical treatment. 3. Homelessness. 4. Rule out antisocial personality disorder. 5. Rule out malingering. 6. Rule out drug-seeking behavior. CURRENT MEDICATIONS: After reviewing options, risks and benefits with the patient, the patient agrees to continue Zyprexa, and patient requests Zyprexa dose to be all at bedtime. The patient agrees to continue Zyprexa 20 mg p.o. q.h.s. The patient requests prescriptions for the following medications at the time of discharge: Zyprexa 20 mg p.o. q.h.s.; a prescription for 30 days is provided. The prescription is reviewed with the patient at time of discharge to ensure accuracy and patient understanding. DISPOSITION: Patient left hospital accompanied by Security. The patient was to be picked up by a cab at time of discharge; however, patient ran into traffic. [place] [employer] had to be called, and it was reported to this TOY PACKER that the [place] [employer] was going to transport the patient to the [facility] to be further evaluated at the emergency room. FOLLOWUP: display coordinator reports the appropriate outpatient follow-up services have been established and outpatient appointments have been scheduled. The patient received written instructions with times and dates of outpatient follow-up appointments. The following follow-up recommendations were provided to the patient at discharge: Continue psychotropic medications as prescribed and attend appointments as scheduled. Report any side effects to a psychiatric outpatient provider, a primary care provider, or other health home child care provider. Address any questions or problems concerning the psychotropic medications with a psychiatric outpatient provider, a primary care provider, or other health home child care provider. Contact [facility] or [facility], or go to the nearest emergency room, if you are ever a danger to yourself/others, or unable to care for yourself. As soon as possible, establish a routine medication management treatment with a psychiatric provider, establish routine therapy appointments, and follow-up with a primary care provider. LEGAL COURSE: The patient was admitted on an M1 hold for involuntary inpatient psychiatric hospitalization. During the course of the patient's hospitalization , patient was placed on a short-term certification. The patient no longer needed to be on a short-term certification as the patient had improved, and patient was placed on voluntary status on , 01/24/2018, and patient discharged the hospital today on a voluntary basis. ATTITUDE AT TIME OF DISCHARGE: The patients attitude was uncooperative at time of discharge. The patient does, however, report he feels safe to discharge, is no longer a danger to himself or others, is in stable condition, and contracts for safety. Patient states he will continue medications as prescribed, and establish medication management treatment with an outpatient provider after discharge. Patient reports he understands the information that has been provided to him, and he understands, accepts, and agrees to psychotropic medications. LABS AND STUDIES: There were no pending labs or studies at time of discharge. ADVANCE DIRECTIVES: There were no advance directives on file, and patient was full code during this hospitalization. The following psychotropic medication treatment informed consent and recommendations were provided to the patient at time of discharge. Patient reports he understands, accepts, and agrees to the information that has been provided. PSYCHOTROPIC MEDICATION TREATMENT INFORMED CONSENT and RECOMMENDATIONS: Review nature of condition, diagnosis, and prognosis. Review nature and purpose of psychotropic medication treatment. Review type of psychotropic medications being prescribed. Review risk and benefits of psychotropic medication treatment. Review probable length of time will need to take medications. Review risk and benefits of not undergoing psychotropic medication treatment. Review alternative treatments to psychotropic medications. Review psychotropic medications contraindications, side effects, and importance of reporting any side effects to a psychiatric provider, primary care provider, or other health home child care provider. Review importance of her asking a psychiatric provider or primary care provider any questions or problems concerning the psychotropic medications. Review safety plan and the importance to contact [facility] or [facility] , or go to the nearest emergency room, if ever a danger to yourself/others, or unable to care for yourself. Recommend upon discharge to establish routine medication management treatment with a psychiatric provider, establish routine therapy appointments, and follow-up with a primary care provider. Verify patient understands, accepts, and agrees to the information that has been provided. /[id number]/MODL MTDD
== END 2018-01-25 12:20 | disposition home or self-care (01) | DRG 750 ==
LOC: EDUNIT# → BBEH 17:20
PROVIDERS: ADMIT Psychiatry & Neurology Psychiatry; ATTEND Psychiatry & Neurology Psychiatry
DX: F20.9 Schizophrenia, unspecified (principal); T43.506A Underdosing of unspecified antipsychotics and neuroleptics, initial encounter; Z91.19 Patient's noncompliance with other medical treatment and regimen
CPT/HCPCS: 80305; G0480

== ENCOUNTER 2018-01-25 13:29 | Emergency (ER) | payer MEDICAID ==
--- NOTE | 2018-01-25 13:31 | EDPHY ---
H & P Time Seen by Provider: 01/25/18 13:31 HPI/ROS: CHIEF COMPLAINT: Placed on M1 psychiatric hold HISTORY OF PRESENT ILLNESS: The patient presents the ED after he did not want to leave the inpatient psychiatric unit. The patient reportedly was there for psychosis. He stabilized. When they attempted to discharge him he stated that he did not want to leave and threatening to walk out in front of a bus. The patient was escorted off the unit and promptly call 911. Police responded and placed the patient on M1 psychiatric hold. REVIEW OF SYSTEMS: A comprehensive 10 point review of systems is otherwise negative aside from elements mentioned in the history of present illness. Source: Patient Exam Limitations: No limitations - Medical/Surgical History Hx Asthma: No Hx Chronic Respiratory Disease: No Hx Diabetes: No Hx Cardiac Disease: No Hx Renal Disease: No Hx Cirrhosis: No Hx Alcoholism: No Hx HIV/AIDS: No Hx Splenectomy or Spleen Trauma: No Other PMH: "WEAK HEART FROM DRUG USE", L HAND SX. cocaine - Social History Smoking Status: Current some day smoker - Physical Exam Exam: General Appearance: Alert, no distress Eyes: Pupils equal and round no pallor or injection ENT, Mouth: Mucous membranes moist Respiratory: There are no retractions, lungs are clear to auscultation Cardiovascular: Regular rate and rhythm Gastrointestinal: Abdomen is soft and nontender, no masses, bowel sounds normal Neurological: A&O, normal motor function, normal sensory exam, normal cranial nerves Skin: Warm and dry, no rashes Musculoskeletal: Neck is supple nontender Extremities: symmetrical, full range of motion Psychiatric: Reports suicidal thoughts, questionable malingering behavior, not psychotic Constitutional: Initial Vital Signs Temperature (C) 36.7 C 01/25/18 13:30 Heart Rate 88 01/25/18 13:30 Respiratory Rate 16 01/25/18 13:30 Blood Pressure 128/87 H 01/25/18 13:30 O2 Sat (%) 94 01/25/18 13:30 O2 Delivery Mode Room Air Allergies/Adverse Reactions: haloperidol [From Haldol] Allergy (Verified 01/19/18 16:00) ketamine Allergy (Verified 01/19/18 16:00) PSYCHOTROPIC MEDICATIONS Allergy (Uncoded 01/19/18 16:00) Home Medications: Medication Instructions Recorded Acetaminophen [Tylenol 325mg (*)] 650 mg PO Q4HRS PRN tab 01/25/18 Clotrimazole 1% [Lotrimin 1%] 1 neymar TP BID PRN cream 01/25/18 Nicotine Polacrilex [Nicorette gum 2 mg B Q1HR PRN gum 01/25/18 (*)] OLANZapine [Zyprexa] 20 mg PO HS 30 Days #30 tablet 01/25/18 Medical Decision Making ED Course/Re-evaluation: The patient was seen by the psychiatric service who recommends vacating his mental health hold as a feel the patient is malingering and exhibiting antisocial personality disorder. The police will be called to escort the patient from the campus. Departure - Departure Disposition: Home, Routine, Self-Care Clinical Impression: Antisocial personality disorder Condition: Good Instructions: Schizoaffective Disorder (ED) Additional Instructions: 1. Please follow-up with the mental health resources provided in the ED today. 2. [facility] does operate a 24/7 psychiatric crisis unit located at [address] [place] [address]. The telephone number for the 24 hour crisis center is [phone]. 3. Please return to the ED if you are feeling suicidal, having thoughts of harming yourself/others or should you feel unsafe or have worsening symptoms. Referrals: [facility],. [Clinic] - As per Instructions
[2018-01-25 14:00] VITALS: BP 128/87
== END 2018-01-25 15:04 | disposition home or self-care (01) ==
DX: F60.2 Antisocial personality disorder (principal)

== ENCOUNTER 2018-03-12 09:22 | Emergency (ER) | payer MEDICAID, OTHER ==
[2018-03-12] MEDS ORDERED: OLANZapine 10 MG/2 ML VIAL ONE (09:36)
--- NOTE | 2018-03-12 09:47 | EDPHY ---
HPI/HX/ROS/PE/MDM Narrative: CLINICAL IMPRESSION: Malingering behavior in schizoprenic ASSESSMENT/PLAN: 37-year-old male with a history of schizophrenia, paranoid type and medication noncompliance who is also homeless, presents to the emergency department on an M1 hold by police after he was found sitting in traffic in the middle of the road in [place] acting erratically. Patient was apparently mumbling to police and upon arrival to the ED was agitated and refusing to answer questions. He eventually calmed with reassurance from ED staff and did not require sedative medications. He tells me he was sitting in traffic because he"did not mentally feel right"but will not expand further on this. Patient was medically cleared however has cocaine in his urine and initial attempts at evaluation by [facility] were unsuccessful. Will allow patient to metabolize drugs and then attempt re- evaluation. [facility] evaluated patient and revoked his hold as it was felt he does not meet inpatient admission and is malingering. Patient frequently comes to ED requesting benzo's which were not provided to him. It is felt he is malingering and displaying anti-social personality disorder. He was discharged with PCP and mental health followup. ED attending aware. DIFFERENTIAL DX: schizophrenia, SI/HI, acute paranoia, toxidrome, electrolyte imbalance, infection ED PROCEDURES: See lab results below ED COURSE: 12:15 p.m.: Patient met with [facility] provider. He is apparently not cooperative and this is likely secondary to crack cocaine in his system. Will attempt to re -evaluate in a couple hours. Patient is otherwise medically cleared for evaluation. [facility] evaluated and spoke with inpatient psych who is concerned patient may be faking symptoms to get into the hospital to get detention and meds. It was not felt he required inpatient admission today. CHIEF COMPLAINT: M1 hold HPI: This is a 37-year-old male with a past medical history of "mental health issues " who presents to the emergency department on an M1 hold with [place] police after he was apparently standing in the middle of traffic acting erratically. Police state that he was mumbling. Patient states that he is"not feeling well mentally". He is not expanding much beyond this. Patient is initially refusing lab draw but eventually cooperative. He is not answering any more of my questions PMH: Schizophrenia, paranoid type, medication non-compliance, drug abuse Pertinent Past Surgical History: None reported Family History: None reported Social History: Homeless, medication noncompliance, abuses drugs REVIEW OF SYSTEMS: Unable to obtain as patient is not answering questions PHYSICAL EXAM: General Appearance: Alert, oriented, hypertensive, initially acting irratic and combative but calms and does not require IM meds. Agrees to blood draw HEENT: Oropharynx clear is no erythema or exudates, no tonsillar hypertrophy or asymmetry. Dentition without abnormality. Eyes: [PERRLA, no acute vision change, nystagmus, swelling, discharge Neck: Supple, nontender, no lymphadenopathy, no midline pain, FROM, no meningismus. Respiratory: There are no retractions, lungs are clear to auscultation. Cardiac: Regular rate and rhythm, no murmurs or gallops. Gastrointestinal: Abdomen is soft, nontender Neurological: Alert and oriented x 3, CN 2-12 grossly intact, normal gait no ataxia Skin: Warm, dry, no rashes, no nodules on palpation. Musculoskeletal: Extremities are symmetrical, full range of motion, no tenderness, deformity, swelling, or erythema. Psychiatric: Patient is oriented X 3, he is somewhat agitated, initially refusing to answer questions denies hallucinations and delusions MEDICAL DECISION MAKING: Patient was seen independently. Secondary supervising physician at time of evaluation was Dr. Gayle. Diagnosis: Schizophrenia. New, requires workup Summary: See Assessment and Plan for summary of ED visit Clinical lab tests: ordered / reviewed. Decision to obtain medical records or history from someone other than the patient: Recent admission records from inpatient psych reviewed Review / Summarize previous medical records: Inpatient psych records reviewed Discussed patient with another provider: Dr. Gayle, Dr. Barbour Patient Progress: Stable. (Erick Rouse) ED Course: Signed out to Dr. Barbour at 2:00 p.m. With mental health evaluation in progress. Discharge summary by from [facility] reviewed patient has schizophrenia. (Bobby Gayle) MDM: The patient was evaluated by Mental Health and was felt to be malingering. They vacated the M1 hold. Patient is discharged from the emergency department at the recommendation of the [facility] psychiatric team. (Deangelo Barbour) - Data Points Laboratory Results: Laboratory Results 03/12/18 09:49 03/12/18 09:49 03/12/18 03/12/18 03/12/18 09:50 09:49 09:49 WBC 4.95 10^3/uL 10^3/uL (3.80-9.50) RBC 4.85 10^6/uL 10^6/uL (4.40-6.38) Hgb 13.8 g/dL g/dL (13.7-17.5) Hct 42.3 % % (40.0-51.0) MCV 87.2 fL fL (81.5-99.8) MCH 28.5 pg pg (27.9-34.1) MCHC 32.6 g/dL g/dL (32.4-36.7) RDW 13.5 % % (11.5-15.2) Plt Count 210 10^3/uL 10^3/uL (150-400) MPV 10.0 fL fL (8.7-11.7) Neut % (Auto) 50.0 % % (39.3-74.2) Lymph % (Auto) 33.7 % % (15.0-45.0) [place] % (Auto) 10.1 % % (4.5-13.0) Eos % (Auto) 4.8 % % (0.6-7.6) Baso % (Auto) 1.2 % % (0.3-1.7) Nucleat RBC Rel Count 0.0 % % (0.0-0.2) Absolute Neuts (auto) 2.47 10^3/uL 10^3/uL (1.70-6.50) Absolute Lymphs (auto) 1.67 10^3/uL 10^3/uL (1.00-3.00) Absolute Monos (auto) 0.50 10^3/uL 10^3/uL (0.30-0.80) Absolute Eos (auto) 0.24 10^3/uL 10^3/uL (0.03-0.40) Absolute Basos (auto) 0.06 10^3/uL 10^3/uL (0.02-0.10) Absolute Nucleated RBC 0.00 10^3/uL 10^3/uL (0-0.01) Immature Gran % 0.2 % % (0.0-1.1) Immature Gran # 0.01 10^3/uL 10^3/uL (0.00-0.10) Sodium 141 mEq/L mEq/L (135-145) Potassium 4.8 mEq/L mEq/L (3.3-5.0) Chloride 112 mEq/L H mEq/L (97-110) Carbon Dioxide 19 mEq/l L mEq/l (22-31) Anion Gap 10 mEq/L mEq/L (6-14) BUN 14 mg/dL mg/dL (7-23) Creatinine 1.0 mg/dL mg/dL (0.7-1.3) Estimated GFR > 60 Glucose 109 mg/dL H mg/dL (70-100) Calcium 9.1 mg/dL mg/dL (8.5-10.4) Salicylates < 1.0 mg/dL L mg/dL (2.0-20.0) Urine Opiates Screen NEGATIVE (NEGATIVE) Acetaminophen < 10 mcg/mL L mcg/mL (10-30) Urine Barbiturates NEGATIVE (NEGATIVE) Ur Phencyclidine Scrn NEGATIVE (NEGATIVE) Ur Amphetamine Screen NEGATIVE (NEGATIVE) U Benzodiazepines Scrn NON-NEGATIVE H (NEGATIVE) Urine Cocaine Screen NON-NEGATIVE H (NEGATIVE) U Marijuana (THC) Screen NEGATIVE (NEGATIVE) Ethyl Alcohol < 10 mg/dL mg/dL (0-10) General Time Seen by Provider: 03/12/18 09:29 Initial Vital Signs: Initial Vital Signs Temperature (C) 37 C 03/12/18 10:02 Heart Rate 68 03/12/18 10:02 Respiratory Rate 18 03/12/18 10:02 Blood Pressure 129/72 H 03/12/18 10:02 O2 Sat (%) 97 03/12/18 10:02 O2 Delivery Mode Room Air Allergies/Adverse Reactions: haloperidol [From Haldol] Allergy (Verified 01/19/18 16:00) ketamine Allergy (Verified 01/19/18 16:00) PSYCHOTROPIC MEDICATIONS Allergy (Uncoded 01/19/18 16:00) Home Medications: Medication Instructions Recorded Acetaminophen [Tylenol 325mg (*)] 650 mg PO Q4HRS PRN tab 01/25/18 Clotrimazole 1% [Lotrimin 1%] 1 neymar TP BID PRN cream 01/25/18 Nicotine Polacrilex [Nicorette gum 2 mg B Q1HR PRN gum 01/25/18 (*)] OLANZapine [Zyprexa] 20 mg PO HS 30 Days #30 tablet 01/25/18 Departure - Departure Disposition: Home, Routine, Self-Care Clinical Impression: Schizophrenia, paranoid type Condition: Good Instructions: Schizophrenia (ED) Referrals: [facility],. [Clinic] - As per Instructions
[2018-03-12 10:10] LABS: PLATELET COUNT 210 10^3/uL (150-400)
[2018-03-12 14:30] VITALS: BP 129/78
--- NOTE | 2018-03-12 17:48 | ASMTTLCEVL ---
TLC Evaluation - Basic Information Evaluation Start Date and 03/12/2018 12:00 PM Time Hospital Status Answers: M1 Hold 72-hr M1 Hold Start Date 03/12/2018 09:00 AM and Time Patient statement Notes: " I don't want to talk to you. I came here against my will. I'm not doing good." Narrative Notes: Pt is a 37 yo, homeless, unemployed, male with limited known psychiatric history, likely schizophrenia and ZOË, brought to [facility] ED by [employer] on M1 hold which noted: [place] is reported via 911 (multiple calls) as "out of it" in traffic trying to be struck by a vehicle. [place] is found by police in the middle of the road stopping in front of vehicles. [place] is mumbling and unsure of his location. States he was just out of hospital and wants to go to the crisis center. His temperament is all over the spectrum. and he mentions harming himself." This clinician was unable to evaluate pt at this time. Pt appeared restless, getting in and out of bed, posturing toward this clinician and security stating, " I can't talk to you," " I want to leave." Pt was pulling at the electrode pads on his chest, fidgeting with the bandage on his arm and pulling on his pants and underwear. Pt would then stand and stare with a blank stare for a few minutes. Pt's utox was positive for cocaine. Pt later stated he was willing to participate in the eval process. Pt was sitting on the edge of the bed. Pt still was unwilling to answer questions and only would start talking when this clinician told pt I would have to leave the room because we weren't having any conversation. Pt stated, " I should go to the hospital but a different one because it's hard being on the street." This clinician asked pt what led him to the street and pt declined to answer the question. This clinician asked pt if he was suicidal and he denied SI. This clinician asked pt why he was in the traffic earlier today and he declined to answer this question. At one point during the eval, pt told this clinician, "Please don't put your leg that way m'am." Pt made several gestures towards the clinician and security and would get up and move the chair and state " Please, move your chair back to the way it was." Per NIXON Moise during the course of hospitalization at 3N [id number]/18-1012/18, pt was given a bus pass to [place], [place] so he could be with his family, however when it was time for D/c, pt told Jose ALICEA, " thank you so much for allowing me to stay here for a few days to get some sleep and some food. This is the main reason I came here. Oh, and it has been good to get some ativan too." The pt was asked on 01/24/18 after establishing discharge plans and after improving, why he was sitting in traffic prior to his hospitalization, which led to this hospitalization, and pt reported, " well, I had no choice. That's what I had to do to get here, and it was good to come to the hospital and get some sleep and some food." Per Jose Moise notes, 01/25/18, pt improved considerably, with no signs of psychiatric symptoms and no signs of psychiatric symptoms expressed at time of discharge and he contracts for safety. Security escorted him to his cab. When pt was being discharged from the hospital at that time, pt seemed unwilling to leave the hospital and stated he did not want to leave and ran into traffic. Security called [employer]. The pt exhibited the same type of behaviors that he exhibited prior to his hospitalization, and it appears pt exhibits these types of behaviors and expressed psychosis and suicidal ideations in order to be hospitalized for food and long-term. The [place] [employer] arrived at the hospital to assist, the pt was redirectable. However, when [place] [employer] was leaving the premises, the pt again ran out into traffic. The pt had to be arrested and [facility]. Pt was evaluated in the ED and was discharged , as they did not believed he met criteria for inpt hospitalization. Approx 30 minutes after pt was d/c'd from the hospital today on 03/12/18, [employer] brought pt back for running in traffic but pt was in the ED for a short time before [employer] arrested him and took him to custodial. Diagnosis History Notes: Schizophrenia and ZOË. Per D/C summary [facility], Pt was Dx with Schizophrenia 295.90 (F20.9), R/O antisocial disorder and malingering. Prior suicide attempts Notes: No history provided by pt and outside collateral not available at this time. Prior hospitalizations Notes: Pt was at [facility] 01/17/18. Pt was also in [facility]. Treatment Responses Notes: Pt has a hx of malingering. History of violence Notes: No history provided by pt and outside collateral not available at this time. Therapist: None Psychiatrist: None Medications (name, dosage, route, freq uency) Notes: Some medical record pages were on his person from [facility] dated 01/04/18 with list of medications including: Buspar 10 mg po TID for ZOË; Klonopin 0.5 mg po BID; Depakote 1000 mg po daily; Vistaril 25 mg po q6hrs prn for anxiety; Zyprexa 20 mg po BID daily for psychosis; and Perphenazine 4 mg po BID for schizophrenia. Pt was discharged from with zyprexa 20 qhs. It is unclear if pt is still taking his medication or any medication at this time. Allergies/Reaction Notes: No history provided by pt and outside collateral not available at this time. Sleep Notes: No history provided by pt and outside collateral not available at this time. Appetite Notes: No history provided by pt and outside collateral not available at this time. Medical/Surgical history Notes: No history provided by pt and outside collateral not available at this time. Substance use history (frequency, intensity, his tory, duration) Notes: Pt' s utox was positive for cocaine and benzodiazepines. Pt exhibitied drug seeking behaviors while on on 01/2018. Pt declined to provide any information. Family composition Notes: Pt reports he has family in [place], [place]. Need for family Answers: No participation in patient's care Family psychiatric/substance abuse history Notes: No history provided by pt and outside collateral not available at this time. Developmental history Notes: No history provided by pt and outside collateral not available at this time. Marital status/children Notes: No history provided by pt and outside collateral not available at this time. Living situation Notes: Pt is homeless. Sexual history/orientation Notes: No history provided by pt and outside collateral not available at this time. Peer support/family strengths Notes: No history provided by pt and outside collateral not available at this time. Education level/history Notes: No history provided by pt and outside collateral not available at this time. Work history Notes: Pt stated, " Please don't ask me about that." Notes: No history provided by pt and outside collateral not available at this time. Legal Notes: Per Jose Jose Maria, pt has a hx of incarceration for burglary. Pt declined to provide any information about his legal hx. Cheondoism/Spiritual Notes: No history provided by pt and outside collateral not available at this time. Leisure Notes: No history provided by pt and outside collateral not available at this time. Collateral Notes: Previous [facility] records. Patient's strengths Answers: Motivated for Treatment (Please select at least TWO strengths): Willingness TLC Evaluation - Mental Status Exam Appearance: Answers: Unkempt Eye Contact: Answers: Intermittent Staring Mood: Answers: Labile Affect: Answers: Incongruent w/ Mood Behavior: Answers: Uncooperative Manipulative Speech: Answers: Dramatic Thought Process: Answers: Distracted Insight: Answers: Poor Judgement: Answers: Poor Pt reported to have Answers: No suicidal/self-injuring ideation/behavior? Pt reported to be making Answers: No suicidal/self-injuring threats? Pt reported to have Answers: No aggression/assault ideation/behavior? Pt reported to be making Answers: No aggression/assault threats? Pt exhibits inability to Answers: No care for self/grave disability? Ideation/behavior is Answers: No chronic? Ideation involves Answers: No serious/lethal intent? Ideation has Answers: No delusional/hallucinatory content? History of Answers: No suicidal/self-injuring ideation, behavior, or threats? History of Answers: No aggressive/assaultive ideation, behavior, or threats? History of serious Answers: No physical harm to self/others while in treatment setting? [facility] Evaluation - Suicide/Homicide Risk Suicide Risk Factors: Answers: Cluster "B" D/O or Traits Schizophrenia Unstable Living Situation Current Suicidal Answers: No Ideation? Suicide Internal Answers: Other Notes: Unable to assess as pt Protective Factors: would not answer this question Suicide External Answers: Other Notes: Unable to assess as pt Protective Factors: would not answer this question Ranking of patient's Answers: Low suicidal risk: Ranking of patient's Answers: Low homicidal risk: [facility] Evaluation - Wrap-up AXIS I Diagnosis (include DSM-V and ICD-10 codes), must also be entered in [employer], which is the source of truth. Notes: In consultation with [facility] ED physician, Bobby Gayle MD and [facility] on-call MATERIAL ANALYST Jose Moise MD, both concurred that pt does not appear to meet 27-65 criteria requiring psychiatric hospitalization as pt does not appear to be an imminent risk of harm to self/others/gravely disabled due to a mental illness condition. Evaluation End Date and 03/12/2018 05:45 PM Time (HH:MM): Date Signed: 03/12/2018 05:47 PM Electronically Signed By:Iraida Logan
--- NOTE | 2018-03-12 18:05 | ASMTTCLDSP ---
TLC Discharge Disposition Disposition: Answers: Discharge If Answers: Yes DISCHARGED: Patient/family given suicide hotline info & [facility] brochure? Disposition Notes: Notes: Pt was given homeless resources and encouraged to call [facility] and start services. Discharge Concerns/Recommendations: Notes: In consultation with [facility] ED physician, Bobby Gayle MD and [facility] on-call TUBE BUFFER Jose Moise MD, both concurred that pt does not appear to meet 27-65 criteria requiring psychiatric hospitalization as pt does not appear to be an imminent risk of harm to self/others/gravely disabled due to a mental illness condition. Psychiatrist vacating M1 Bobby Abreu MD Hold: Date and time M1 hold 03/12/2018 06:00 PM vacated (time format is hh:mm): Type of Hold: Answers: M1/72-hour Hold Date Signed: 03/12/2018 06:04 PM Electronically Signed By:Iraida Logan
== END 2018-03-12 14:30 | disposition home or self-care (01) ==
LOC: EEVIPCON 09:22
DX: F20.0 Paranoid schizophrenia (principal); Z91.14 Patient's other noncompliance with medication regimen; Z59.0 Homelessness
CPT/HCPCS: 80305; G0480

== ENCOUNTER 2018-03-12 15:05 | Emergency (ER) | payer MEDICAID | END 2018-03-12 15:18 | LOC: EEVIPCON 15:05 | DX: Z53.21 Procedure and treatment not carried out due to patient leaving prior to being seen by health care provider (principal) ==